=== PATIENT | male | born 1985 | race Caucasian/White ===

== ENCOUNTER → 2023-09-17 11:11 | Outpatient (CLI) | payer OTHER, SELFPAY ==
[2023-09-17 12:22] LABS: Add Manual Diff / Slide Review NO; Basophils Absolute Auto 0 /uL (0-100); Basophils Percent Auto 0.9 % (0-2); Eosinophils Absolute Auto 200 /uL (0-450); Eosinophils Percent Auto 3.8 % (2-4); Hematocrit 44.6 % (41-53); Hemoglobin 15.9 g/dL (13.5-17.5); Lymphocytes Absolute Auto 1700 /uL (1100-4500); Lymphocytes Percent Auto 33.5 % (25-40); Mean Corpuscular HGB Conc 35.7 % (30-36); Mean Corpuscular Hemoglobin 30.8 PG (26-34); Mean Corpuscular Volume 86.3 fL (80-100); Monocytes Absolute Auto 600 /uL (0-900); Monocytes Percent Auto 10.7 % (3-14); Neutrophils Absolute Auto 2600 /uL (1500-7000); Neutrophils Percent Auto 51.1 % (50-75); Platelet Count 249 X10^3/uL (150-400); Red Blood Cell Count 5.17 X10^6/uL (4.5-5.9); Red Cell Distribution Width 12.9 % (11.6-14.8); White Blood Cell Count 5.2 X10^3/uL (4.5-11.0)
[2023-09-17 12:33] LABS: Hemoglobin A1C% w Est Avg Glu 5.4 % (4.0-6.0)
[2023-09-17 12:35] LABS: Cholesterol 222 mg/dL (140-199); HDL Cholesterol 32 mg/dL (40-60); LDL Cholesterol Calculated 145 mg/dL (<100); Triglycerides 226 mg/dL (35-150)
[2023-09-17 13:27] LABS: Hep C Virus Ab w/Reflex Quant NEGATIVE s/c (NEGATIVE)
== END ==
PROVIDERS: PCP Family Medicine; Referring Provider Family Medicine; Visit Provider Family Medicine
DX: Z00.00 Encounter for general adult medical examination without abnormal findings (principal); E66.9 Obesity, unspecified
CPT/HCPCS: 36415; 80061; 83036; 85025; 86803

== ENCOUNTER → 2024-01-06 14:16 | Outpatient (CLI) | payer OTHER, SELFPAY | LOC: PHYS 14:16 | PROVIDERS: Family Provider Family Medicine; PCP Family Medicine; Referring Provider Family Medicine; Visit Provider Family Medicine | DX: R20.0 Anesthesia of skin (principal); R20.2 Paresthesia of skin | CPT/HCPCS: 95886; 95910 ==

== ENCOUNTER 2024-01-19 11:15 | Outpatient (RCR) | payer OTHER, SELFPAY ==
--- NOTE | 2023-11-12 16:53 | PT.OIE ---
Current Diagnoses Pain in right foot (11/12/23) Past Medical History (Last Reviewed 10/24/23 @ 11:22 by Mala Brown PA-C) Psoriasis (~1989) Past Surgical History (Last Reviewed 10/24/23 @ 11:22 by Mala Brown PA-C) Anesthesia History of circumcision (~1996) Visit Care Team Role Provider Type Phil Perez MD Attending Provider Physician Family Provider Primary Care Provider Referring Provider Specialty: Family Practice Obstetrics Address: [address] [place] [address], [facility] Email: [email or web address] Physical Therapy Initial Evaluation PT-OP-A Visit Information Start: 11/12/23 07:31 Freq: Status: Active Protocol: Document 11/12/23 12:40 NM (Rec: 11/12/23 13:00 NM [id number]) Out-Patient Physical Therapy Visit Information Visit Information Visit Type Initial Evaluation Visit Note Pt late to appt because in bathroom Visit Start Time 07:35 Visit Stop Time 08:15 Total Visit Minutes 40 Visit Number 1 Evaluation Information Evaluation Date 11/12/23 Precautions Precautions Decreased sensation along lateral plantar surface of R foot, dorsal lateral surface of foot. PT-OP-B Current Condition Start: 11/12/23 07:31 Freq: Status: Active Protocol: Document 11/12/23 12:40 NM (Rec: 11/12/23 13:00 NM [id number]) Current Condition History of Current Condition Onset Date 4 weeks ago (mid September) Current Complaints R foot numbness, tingling, R ankle pain History of Current Condition Pt presents to clinic with R foot numbness and tingling along the R lateral plantar surface beginning 4 weeks. He also reports minimal numbness along the lateral dorsal surface of the R foot as well. He reports that his R foot started hurting at work and when he took off his shoe after work, he noticed that the lateral portion of the plantar surface of his foot was numb. He reports that the sensation worsened over the next several week but has stagnated recently. When he followed up with the doctor about the condition, they told him that his shoes ([employer]idas with built in sock) were compressing the R lateral plantar nerve. He now wears different shoes that are a size larger to prevent compression. He went to long term care pharmacist for the condition who recommended PT and custom orthotics. Pt believes that he also has a prior Achilles tendon injury to the same foot from a soccer accident a year ago, which he thinks also affects this condition. 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 He reports that his symptoms are most prevalent regardless of weight bearing, but it worsens with standing and walking (> 3 hrs) . Prior Treatments and Tests Met with long term care pharmacist, will be getting custom orthotics in future Treatment Goals Patient/Caregiver Goals To be able to tolerate standing at work Prior Functional Status Baseline Function- ADL's Independent Baseline Function- Mobility Independent Baseline Function- Work/School 10 hour shifts Baseline Function- Recreation/Hobbies Play soccer, swim Current Functional Impairments (Reported) Functional Limitations- Mobility/Gait Unable to walk >3 hrs before needing to sit down Functional Limitations- Work/School Unable to stand for > 3 hrs before needing to sit down Functional Limitations- Recreation/ Unable to hike, play soccer Hobbies PT-OP-C Subjective Start: 11/12/23 07:31 Freq: Status: Active Protocol: Document 11/12/23 12:40 NM (Rec: 11/12/23 13:00 NM [id number]) OP-PT Subjective Patient Comments Patient Comments See above hx for pt report Patient Questionnaires Foot & Ankle Ability Measure- ADL and Sports FAAM-ADL Score 62/84 FAAM-Sport Score 16/32 Lower Extremity Functional Scale LEFS Score 70/80 OP-PT Pain Assessment Pain Assessment Grid Paper Pain Assessment Grid Completed Yes Location R foot/ankle Pain Location Details lateral plantar and dorsal surface of foot Intensity 3 Scale Used Numeric (0 - 10) Description Aching,Burning,Throbbing, Tingling Description- Other initially burning > becomes throbbing over time Frequency Constant Radiating Location none Pain Aggravating Factors ADL's,Activity,Standing, Walking,Stair Climbing Pain Alleviating Factors Massage PT-OP-D Balance Start: 11/12/23 07:31 Freq: Status: Active Protocol: Document 11/12/23 12:40 NM (Rec: 11/12/23 13:00 NM [id number]) Balance Tests Single Limb Standing Single Limb- Right 45 sec Single Limb- Left 30 sec; instability PT-OP-E Functional Tests Start: 12/15/23 07:31 Freq: Status: Active Protocol: Document 11/12/23 12:40 NM (Rec: 11/12/23 13:00 NM [id number]) Functional Tests Squat Test Score 10 Comments heel rise off ground Single Leg Squat Test Score 1 Comment R knee and ankle instability, genu valgus and pronation at foot Other Dorsiflexion Test Name of Test pt foot about 4 from wall in 1/2 kneel, heel on ground, measure distance Score 0 Comment R knee can touch wall PT-OP-F Manual Assessment Start: 11/12/23 07:31 Freq: Status: Active Protocol: Document 11/12/23 12:40 NM (Rec: 11/12/23 13:00 NM [id number]) Manual Assessments Soft Tissue Assessment Soft Tissue Mobility Assessment R Achilles is thickened compared to L Achilles. Pt reports tenderness at origin of plantar fascia on plantar surface of foot Joint Mobility Assessment Joint Mobility Assessment No instability at talocrural or subtalar joints. Nml mobility of rays, tarsals PT-OP-G Mobility & Gait Start: 11/12/23 07:31 Freq: Status: Active Protocol: Document 11/12/23 12:40 NM (Rec: 11/12/23 16:16 NM [id number]) OP Gait Assessment Gait Gait Assistance Required: Independent Distance (Feet) 100 Gait Deviations General Gait Pattern Decreased Feet Clearance Factors Limiting Gait Function Factors Limiting Gait Function Decreased Sensation,Pain Comments Gait Comments Pt demos R hip ER and R foot pronation with slight knee valgus during gait, minimally decreased foot clearance. Gait is not antalgic, but he does demo decreased step length on his RLE compared to his LLE. PT-OP-H Neuro Start: 11/12/23 07:31 Freq: Status: Active Protocol: Document 11/12/23 12:40 NM (Rec: 11/12/23 13:00 NM [id number]) Sensation Evaluation Gross Sensation Gross Sensation Left LE Impaired Sensation Description Paresthesia,Numbness Dermatome Impairments L4,S1 Location Details Right Foot Light Touch Impaired Comments Summary Comments L4 and S1 dermatomes impaired to light touch sensation ( lateral plantar and dorsal foot, 5th toe) PT-OP-J Posture/Palpation/Skin Start: 11/12/23 07:31 Freq: Status: Active Protocol: Document 11/12/23 12:40 NM (Rec: 11/12/23 13:00 NM [id number]) Posture Evaluation Position Standing Evaluation View posterior and anterior Pelvis Posture Posterior Tilted Weight Distribution Balanced Hip Posture (L) Neutral,(R) Neutral Knee Posture (L) Neutral,(R) Genu Valgus Ankle/Foot Posture (L) Pronated,(R) Pronated,(L) Calcaneal Eversion,(R) Calcaneal Eversion Foot Arch (L) Low Arch,(R) Low Arch Palpation Assessment Location R ankle/foot Palpation Location Achilles, malleoli, navicular, metatarsals, calcaneus Palpation Findings Tenderness Palpation Details Tenderness at calcaneus near plantar fascia origin; tenderness at Achilles near insertion Skin Assessment Other Assessments Skin Assessment Comments R foot is same color and temperature as L foot PT-OP-K Range of Motion Start: 11/12/23 07:31 Freq: Status: Active Protocol: Document 11/12/23 12:40 NM (Rec: 11/12/23 13:00 NM [id number]) Ankle and Foot Goniometric Range of Motion Ankle and Foot Left Ankle/Foot ROM WFL Yes Testing Position Sitting Dorsiflexion with Knee Flexed 10 Dorsiflexion with Knee Extended 5 Plantarflexion 40 Inversion 35 Eversion 25 Right Ankle/Foot ROM WFL Yes Testing Position Sitting Dorsiflexion with Knee Flexed 8 Dorsiflexion with Knee Extended 5 Plantarflexion 50 Inversion 35 Eversion 20 Comments Min pain with eversion PT-OP-L Special Tests Start: 11/12/23 07:31 Freq: Status: Active Protocol: Document 11/12/23 12:40 NM (Rec: 11/12/23 13:00 NM [id number]) Special Tests Knee Special Tests Hamstring Length Comments R hamstring 150 deg L hamstring 170 deg Foot/Ankle Special Tests Windlass test Test Results negative (R) Comments arch rises Anterior drawer Test Results negative (R) Talar tilt Test Results negative (R) Villegas Test Results negative (R) Neural Special Tests- Lower Body Tarsal tunnel n tension Test Results negative Comments SLR + eversion + toe ext Plantar nerve Tinel Test Results positive (R) Comments reports tingling with tapping of abductor hallucis Superior peroneal n tension Test Results negative Comments SLR + PF + inversion Tarsal Tunnel Tinel Test Results positive (R) Comments reports tingling within 10 sec (Tibial n) PT-OP-M Strength Start: 11/12/23 07:31 Freq: Status: Active Protocol: Document 11/12/23 12:40 NM (Rec: 11/12/23 13:00 NM [id number]) Ankle/Foot Strength Ankle and Foot Manual Muscle Testing Left Dorsiflexion (L4) 4+ Good+ Inversion 4+ Good+ Eversion (S1) 4+ Good+ Comments Able to perform 10 single leg heel raises (4/5) Toes 5/5 digits 1-5 for flex and ext, unable to abduct toes Right Dorsiflexion (L4) 4- Good- Inversion 4 Good Eversion (S1) 3+ Fair+ Comments Able to perform 10 single leg heel raises (4/5) but with poor eccentric control and mild instability Reports discomfort with heel raise, eversion Toes: 4/5 digits 1-5 for flex and ext, unable to abduct toes PT-OP-T Assessment and Plan Start: 11/12/23 07:31 Freq: Status: Active Protocol: Document 11/12/23 12:40 NM (Rec: 11/12/23 13:00 NM [id number]) Physical Therapy Assessment Rehab Potential Rehabilitation Potential Good Evaluation Complexity Number of Personal Factors/Comorbidities 1-2 Number of Body Systems Impaired 1-2 Clinical Presentation at Evaluation Evolving Impairments Impairments Activity Tolerance,Balance, Coordination,Functional Activities,Functional Mobility ,Gait,Integument,Pain,Posture, ROM,Sensation,Soft Tissue Mobility,Strength Goals Five Impairment strength Impairment R ankle DF 4-/5, eversion 3+/5 , and inversion 4/5 Residential Goal (LTG) Pt will improve global R ankle strength by at least 1 MMT grade without pain in order to demonstrate improved ankle stability during standing and while playing soccer. LTG Duration 6 weeks Four Impairment ADL, function Impairment FAAM score 62/84 (ADLs) and LEFS 70/80 Residential Goal (LTG) Pt will improve his FAAM score by at least 8 points (1 MCID) and LEFS score by at least 5 points in order to demonstrate improved ADL tolerance and ability to participate in recreational activities. LTG Duration 6 weeks Three Impairment strength Impairment R ankle 10 single limb heel raises with poor eccentric control Short Term Goal (STG) Pt will be able to perform at least 10 single leg heel raises with good eccentric control and improved ankle stability in order to demonstrate improved ankle plantaflexion strength for playing soccer. STG Duration 3 weeks Residential Goal (LTG) Pt will be able to perform at least 15 single leg heel raises with good eccentric control and improved ankle stability in order to demonstrate improved ankle plantaflexion strength for playing soccer. LTG Duration 6 weeks Two Impairment function Residential Goal (LTG) Pt will trial OTC shoe orthotics for at least 3 days to prevent R foot/ankle pronation and provide improved arch support for pain relief until he gets custom orthotics . LTG Duration 6 weeks One Impairment function Impairment Only able to stand 3 hrs before pain at work Short Term Goal (STG) Pt will report that he is able to stand for 3 hours with 3/ 10 or less reported pain before needing to take a seated rest break at work in order to demonstrate improved activity tolerance. STG Duration 3 weeks Pedigree Researcher Goal (LTG) Pt will report that he is able to stand for 5 hours with 3/ 10 or less reported pain before needing to take a seated rest break at work in order to demonstrate improved activity tolerance. LTG Duration 6 weeks Assessment Summary Assessment Pt is a 38 y.o. male presenting with R lateral foot numbness beginning 4 weeks ago. Pt has decreased sensation to light touch in the L4 and S1 dermatome, reporting burning and throbbinig. He has positive Tinel tests for the R tibial tunnel and plantar nerve. His R ankle ROM is normal, but he does have reduced R ankle global strength, especially in ankle plantarflexion and eversion. He demos poor eccentric control during plantarflexion with mild instability. During single leg squats and single limb stance , pt tends to move into knee valgus and ankle pronation. Posturally, pt has a pes planus on both feet and stands /ambulates with excessive ankle pronation. Pt has a previous R Achilles tendon injury (negative tests for torn tendon), which may also contribute to poor stability/ posture and strength in the R ankle. At this time, pt is most limited in his ability to stand or walk for more than 3 hours due to pain, which limits his ability to work. PT educated pt on use of foot orthotics to counteract pronation and provide greater arch support. Pt verbalizes agreement and is planning on purchasing OTC orthotics until he can receive custom orthotics from the long term care pharmacist. Pt would benefit from skilled PT to address impairments in R ankle/foot strength, sensation, balance, proprioception, and activity tolerance in order to return to PLOF. Physical Therapy Plan Frequency and Duration Frequency of Treatment 2x/Week Duration of treatment (weeks) 6 Plan of Care Start Date 11/12/23 Plan of Care End Date 12/24/23 Therapeutic Interventions Therapeutic Interventions Aquatic Therapy,Balance Training,Coordination Training ,Gait Training,Home Exercise Program,Joint Mobilizations, Manual Therapy,Neuromuscular Re-education,Patient/Caregiver Education,Self-Care/Home Management,Sensory Integration ,Soft Tissue Mobilization, Taping,Therapeutic Activities, Therapeutic Exercises Modalities Biofeedback,Cold Pack/Ice Massage,Electric Stimulation, Hot Packs,Iontophoresis, Paraffin Bath,Ultrasound, Vasopneumatic Devices Next Visit Focus/Plan Next Note Type Treatment Note Next Visit Plan Iniatiate strengthening: foot intrinsics, ankle 4 way with light resistance Trial taping
--- NOTE | 2023-11-23 08:30 | PT-OP ANOTE ---
PT called and left voicemail at 8:30 am as pt confirmed appt but did not show up. Reminded pt of upcoming appt day/time and cancellation policy.
--- NOTE | 2023-11-25 15:15 | PT.OTN ---
Current Diagnoses Pain in right foot (11/25/23) Physical Therapy Treatment Note PT-OP-A Visit Information Start: 11/12/23 07:31 Freq: Status: Active Protocol: Document 11/25/23 08:18 NM (Rec: 11/25/23 09:01 NM [id number]) Out-Patient Physical Therapy Visit Information Visit Information Visit Type Treatment Note Visit Start Time 08:17 Visit Stop Time 09:00 Total Visit Minutes 43 Visit Number 2 Evaluation Information Evaluation Date 11/12/23 Precautions Precautions Decreased sensation along lateral plantar surface of R foot, dorsal lateral surface of foot. PT-OP-B Current Condition Start: 11/12/23 07:31 Freq: Status: Active Protocol: Document 11/12/23 12:40 NM (Rec: 11/12/23 13:00 NM [id number]) Current Condition History of Current Condition Onset Date 4 weeks ago (mid September) Current Complaints R foot numbness, tingling, R ankle pain History of Current Condition Pt presents to clinic with R foot numbness and tingling along the R lateral plantar surface beginning 4 weeks. He also reports minimal numbness along the lateral dorsal surface of the R foot as well. He reports that his R foot started hurting at work and when he took off his shoe after work, he noticed that the lateral portion of the plantar surface of his foot was numb. He reports that the sensation worsened over the next several week but has stagnated recently. When he followed up with the doctor about the condition, they told him that his shoes ([employer]idas with built in sock) were compressing the R lateral plantar nerve. He now wears different shoes that are a size larger to prevent compression. He went to [facility] for the condition who recommended PT and custom orthotics. Pt believes that he also has a prior Achilles tendon injury to the same foot from a soccer accident a year ago, which he thinks also affects this condition. 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 He reports that his symptoms are most prevalent regardless of weight bearing, but it worsens with standing and walking (> 3 hrs) . Prior Treatments and Tests Met with [facility], will be getting custom orthotics in future Treatment Goals Patient/Caregiver Goals To be able to tolerate standing at work Prior Functional Status Baseline Function- ADL's Independent Baseline Function- Mobility Independent Baseline Function- Work/School 10 hour shifts Baseline Function- Recreation/Hobbies Play soccer, swim Current Functional Impairments (Reported) Functional Limitations- Mobility/Gait Unable to walk >3 hrs before needing to sit down Functional Limitations- Work/School Unable to stand for > 3 hrs before needing to sit down Functional Limitations- Recreation/ Unable to hike, play soccer Hobbies PT-OP-C Subjective Start: 11/12/23 07:31 Freq: Status: Active Protocol: Document 11/25/23 08:18 NM (Rec: 11/25/23 09:01 NM [id number]) OP-PT Subjective Patient Comments Patient Comments Pt presents to clinic with OTC insoles since 11/13. He reports improved sensation and less pain, but it took a while for him to get used to it. He reports that he currently has 0/10 R foot pain . He has not had his EMG/NCS yet. He reports that he went on a long hike without any difficult after [place]. PT-OP-D Balance Start: 11/12/23 07:31 Freq: Status: Active Protocol: Document 11/12/23 12:40 NM (Rec: 11/12/23 13:00 NM [id number]) Balance Tests Single Limb Standing Single Limb- Right 45 sec Single Limb- Left 30 sec; instability PT-OP-E Functional Tests Start: 11/12/23 07:31 Freq: Status: Active Protocol: Document 11/12/23 12:40 NM (Rec: 11/12/23 13:00 NM [id number]) Functional Tests Squat Test Score 10 Comments heel rise off ground Single Leg Squat Test Score 1 Comment R knee and ankle instability, genu valgus and pronation at foot Other Dorsiflexion Test Name of Test pt foot about 4 from wall in 1/2 kneel, heel on ground, measure distance Score 0 Comment R knee can touch wall PT-OP-F Manual Assessment Start: 11/12/23 07:31 Freq: Status: Active Protocol: Document 11/12/23 12:40 NM (Rec: 11/12/23 13:00 NM [id number]) Manual Assessments Soft Tissue Assessment Soft Tissue Mobility Assessment R Achilles is thickened compared to L Achilles. Pt reports tenderness at origin of plantar fascia on plantar surface of foot Joint Mobility Assessment Joint Mobility Assessment No instability at talocrural or subtalar joints. Nml mobility of rays, tarsals PT-OP-G Mobility & Gait Start: 11/12/23 07:31 Freq: Status: Active Protocol: Document 11/12/23 12:40 NM (Rec: 11/12/23 16:16 NM [id number]) OP Gait Assessment Gait Gait Assistance Required: Independent Distance (Feet) 100 Gait Deviations General Gait Pattern Decreased Feet Clearance Factors Limiting Gait Function Factors Limiting Gait Function Decreased Sensation,Pain Comments Gait Comments Pt demos R hip ER and R foot pronation with slight knee valgus during gait, minimally decreased foot clearance. Gait is not antalgic, but he does demo decreased step length on his RLE compared to his LLE. PT-OP-H Neuro Start: 11/12/23 07:31 Freq: Status: Active Protocol: Document 11/12/23 12:40 NM (Rec: 11/12/23 13:00 NM [id number]) Sensation Evaluation Gross Sensation Gross Sensation Left LE Impaired Sensation Description Paresthesia,Numbness Dermatome Impairments L4,S1 Location Details Right Foot Light Touch Impaired Comments Summary Comments L4 and S1 dermatomes impaired to light touch sensation ( lateral plantar and dorsal foot, 5th toe) PT-OP-J Posture/Palpation/Skin Start: 11/12/23 07:31 Freq: Status: Active Protocol: Document 11/12/23 12:40 NM (Rec: 11/12/23 13:00 NM [id number]) Posture Evaluation Position Standing Evaluation View posterior and anterior Pelvis Posture Posterior Tilted Weight Distribution Balanced Hip Posture (L) Neutral,(R) Neutral Knee Posture (L) Neutral,(R) Genu Valgus Ankle/Foot Posture (L) Pronated,(R) Pronated,(L) Calcaneal Eversion,(R) Calcaneal Eversion Foot Arch (L) Low Arch,(R) Low Arch Palpation Assessment Location R ankle/foot Palpation Location Achilles, malleoli, navicular, metatarsals, calcaneus Palpation Findings Tenderness Palpation Details Tenderness at calcaneus near plantar fascia origin; tenderness at Achilles near insertion Skin Assessment Other Assessments Skin Assessment Comments R foot is same color and temperature as L foot PT-OP-K Range of Motion Start: 11/12/23 07:31 Freq: Status: Active Protocol: Document 11/12/23 12:40 NM (Rec: 11/12/23 13:00 NM [id number]) Ankle and Foot Goniometric Range of Motion Ankle and Foot Left Ankle/Foot ROM WFL Yes Testing Position Sitting Dorsiflexion with Knee Flexed 10 Dorsiflexion with Knee Extended 5 Plantarflexion 40 Inversion 35 Eversion 25 Right Ankle/Foot ROM WFL Yes Testing Position Sitting Dorsiflexion with Knee Flexed 8 Dorsiflexion with Knee Extended 5 Plantarflexion 50 Inversion 35 Eversion 20 Comments Min pain with eversion PT-OP-L Special Tests Start: 11/12/23 07:31 Freq: Status: Active Protocol: Document 11/12/23 12:40 NM (Rec: 11/12/23 13:00 NM [id number]) Special Tests Knee Special Tests Hamstring Length Comments R hamstring 150 deg L hamstring 170 deg Foot/Ankle Special Tests Windlass test Test Results negative (R) Comments arch rises Anterior drawer Test Results negative (R) Talar tilt Test Results negative (R) Villegas Test Results negative (R) Neural Special Tests- Lower Body Tarsal tunnel n tension Test Results negative Comments SLR + eversion + toe ext Plantar nerve Tinel Test Results positive (R) Comments reports tingling with tapping of abductor hallucis Superior peroneal n tension Test Results negative Comments SLR + PF + inversion Tarsal Tunnel Tinel Test Results positive (R) Comments reports tingling within 10 sec (Tibial n) PT-OP-M Strength Start: 11/12/23 07:31 Freq: Status: Active Protocol: Document 11/12/23 12:40 NM (Rec: 11/12/23 13:00 NM [id number]) Ankle/Foot Strength Ankle and Foot Manual Muscle Testing Left Dorsiflexion (L4) 4+ Good+ Inversion 4+ Good+ Eversion (S1) 4+ Good+ Comments Able to perform 10 single leg heel raises (4/5) Toes 5/5 digits 1-5 for flex and ext, unable to abduct toes Right Dorsiflexion (L4) 4- Good- Inversion 4 Good Eversion (S1) 3+ Fair+ Comments Able to perform 10 single leg heel raises (4/5) but with poor eccentric control and mild instability Reports discomfort with heel raise, eversion Toes: 4/5 digits 1-5 for flex and ext, unable to abduct toes PT-OP-Q Treatments Start: 11/12/23 07:31 Freq: Status: Active Protocol: Document 11/25/23 08:18 NM (Rec: 11/25/23 09:01 NM [id number]) Therapeutic Exercises Sitting Exercises Ankle 4 Way Side right Resistance inupiat green tb (lvl 3) Equipment Used in long sitting Reps/Minutes 2x10 ea Comments good feedback, reports no pain ; cues for sagittal motion only with PF/DF [place] [employer] Side right Equipment Used 10 marbles, coffee cup Reps/Minutes 2 sets ea (inversion, eversion ) Comments good toe flexion, grasp of marbles Towel Scrunches Sitting Exercise Name for foot intrinsics, toe flexion Side right Equipment Used towel- into inversion then eversion Reps/Minutes 1x7 ea direction Comments cues to keep heel on floor; reports difficulty with motion Short Arch Raises Side right Equipment Used foot on towel Reps/Minutes 1x10x2 Comments cues to keep heel and toes down; limited motion Standing Exercises Big Toe Ext Stretch Side right Equipment Used syl Reps/Minutes 2x30 ea Comments cues for only toe elevated, gentle stretch; reports good feedback Calf Stretch Standing Exercise Name 1. gastrocnemius, 2. soleus Side right Equipment Used syl Reps/Minutes 2x30 ea Comments cues for heel on ground, gentle stretch; reports good feedback Manual Therapy Treatment Soft Tissue Mobilization R foot/ankle Body Location plantar fascia, achilles PT-OP-T Assessment and Plan Start: 11/12/23 07:31 Freq: Status: Active Protocol: Document 11/25/23 08:18 NM (Rec: 11/25/23 09:01 NM [id number]) Physical Therapy Assessment Goals Five Impairment strength Impairment R ankle DF 4-/5, eversion 3+/5 , and inversion 4/5 Exchange Floor Manager Goal (LTG) Pt will improve global R ankle strength by at least 1 MMT grade without pain in order to demonstrate improved ankle stability during standing and while playing soccer. LTG Duration 6 weeks Four Impairment ADL, function Impairment FAAM score 62/84 (ADLs) and LEFS 70/80 [employer] Manager Goal (LTG) Pt will improve his FAAM score by at least 8 points (1 MCID) and LEFS score by at least 5 points in order to demonstrate improved ADL tolerance and ability to participate in recreational activities. LTG Duration 6 weeks Three Impairment strength Impairment R ankle 10 single limb heel raises with poor eccentric control Short Term Goal (STG) Pt will be able to perform at least 10 single leg heel raises with good eccentric control and improved ankle stability in order to demonstrate improved ankle plantaflexion strength for playing soccer. STG Duration 3 weeks [employer] Floor Manager Goal (LTG) Pt will be able to perform at least 15 single leg heel raises with good eccentric control and improved ankle stability in order to demonstrate improved ankle plantaflexion strength for playing soccer. LTG Duration 6 weeks Two Impairment function [employer] Manager Goal (LTG) Pt will trial OTC shoe orthotics for at least 3 days to prevent R foot/ankle pronation and provide improved arch support for pain relief until he gets custom orthotics . 11/25/23: Pt using OTC orthotic shoe insert to prevent overpronation and provide arch support x2 weeks without pain LTG Duration 6 weeks MET One Impairment function Impairment Only able to stand 3 hrs before pain at work Short Term Goal (STG) Pt will report that he is able to stand for 3 hours with 3/ 10 or less reported pain before needing to take a seated rest break at work in order to demonstrate improved activity tolerance. STG Duration 3 weeks Half-Way Goal (LTG) Pt will report that he is able to stand for 5 hours with 3/ 10 or less reported pain before needing to take a seated rest break at work in order to demonstrate improved activity tolerance. LTG Duration 6 weeks Assessment Summary Assessment Pt tolerated tmt well with no increased pain or discomfort in his R ankle. Initiated foot intrinsic exercises to isolate the intrinsic muscles and to promote better arch support, to decrease pain and pressure on the tibial nerve. Also initiated seated ankle plantaflexion/dorsiflexion/ inversion/eversion with medium resistance theraband to begin strengthening ankle extrinsics within pain free range. Pt requires cues to prevent compensation with hip or frontal plane motion during banded ankle exercises; reports most difficulty with ankle eversion and inversion but no pain with any motion. Will progress to standing ankle strengthening in next session depending on pt tolerance. Initiated stretching of soleus, gastroc, and 1st toe to decrease pressure at plantar fascia for relief in weight bearing. Manual tmt aimed at decreasing any tenderness, pain or soft tissue restrictions at R Achilles tendon, plantar fascia, and calf. R achilles tendon is thickened compared to L side, but he reports relief in symptoms after soft tissue mobilization. Since IE, pt has been wearing OTC shoe insert to prevent overpronation and to provide arch support until he gets custom orthotics, which pt reports is helpful for extended standing at work. HEP : arch raise, ankle 4 way with band, stretch gastroc/soleus/ 1st toe. Pt would benefit from skilled PT to address impairments in R ankle intrinsics, strength, ROM, balance, and activity tolerance to decrease pain symptoms and return to PLOF. Physical Therapy Plan Frequency and Duration Frequency of Treatment 2x/Week Duration of treatment (weeks) 6 Plan of Care Start Date 11/12/23 Plan of Care End Date 12/24/23 Therapeutic Interventions Therapeutic Interventions Aquatic Therapy,Balance Training,Coordination Training ,Gait Training,Home Exercise Program,Joint Mobilizations, Manual Therapy,Neuromuscular Re-education,Patient/Caregiver Education,Self-Care/Home Management,Sensory Integration ,Soft Tissue Mobilization, Taping,Therapeutic Activities, Therapeutic Exercises Modalities Biofeedback,Cold Pack/Ice Massage,Electric Stimulation, Hot Packs,Iontophoresis, Paraffin Bath,Ultrasound, Vasopneumatic Devices Next Visit Focus/Plan Next Note Type Treatment Note Next Visit Plan Cont with ankle strengthening: ankle inv/ev, add standing DF /PF as tolerated (compared to tb), cont foot intrinsics and progress (to standing?) Trial tibial n glide Continue manual therapy of R ankle, achilles, plantar fascia prn
--- NOTE | 2023-12-09 13:58 | PT.OTN ---
Current Diagnoses Pain in right foot (12/09/23) Physical Therapy Treatment Note PT-OP-A Visit Information Start: 11/12/23 07:31 Freq: Status: Active Protocol: Document 12/09/23 13:08 NM (Rec: 12/09/23 13:57 NM [id number]) Out-Patient Physical Therapy Visit Information Visit Information Visit Type Treatment Note Visit Start Time 13:05 Visit Stop Time 13:45 Total Visit Minutes 40 Visit Number 3 Evaluation Information Evaluation Date 11/12/23 Precautions Precautions Decreased sensation along lateral plantar surface of R foot, dorsal lateral surface of foot. PT-OP-B Current Condition Start: 11/12/23 07:31 Freq: Status: Active Protocol: Document 11/12/23 12:40 NM (Rec: 11/12/23 13:00 NM [id number]) Current Condition History of Current Condition Onset Date 4 weeks ago (mid September) Current Complaints R foot numbness, tingling, R ankle pain History of Current Condition Pt presents to clinic with R foot numbness and tingling along the R lateral plantar surface beginning 4 weeks. He also reports minimal numbness along the lateral dorsal surface of the R foot as well. He reports that his R foot started hurting at work and when he took off his shoe after work, he noticed that the lateral portion of the plantar surface of his foot was numb. He reports that the sensation worsened over the next several week but has stagnated recently. When he followed up with the doctor about the condition, they told him that his shoes ([employer]idas with built in sock) were compressing the R lateral plantar nerve. He now wears different shoes that are a size larger to prevent compression. He went to [facility] for the condition who recommended PT and custom orthotics. Pt believes that he also has a prior Achilles tendon injury to the same foot from a soccer accident a year ago, which he thinks also affects this condition. 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 He reports that his symptoms are most prevalent regardless of weight bearing, but it worsens with standing and walking (> 3 hrs) . Prior Treatments and Tests Met with [facility], will be getting custom orthotics in future Treatment Goals Patient/Caregiver Goals To be able to tolerate standing at work Prior Functional Status Baseline Function- ADL's Independent Baseline Function- Mobility Independent Baseline Function- Work/School 10 hour shifts Baseline Function- Recreation/Hobbies Play soccer, swim Current Functional Impairments (Reported) Functional Limitations- Mobility/Gait Unable to walk >3 hrs before needing to sit down Functional Limitations- Work/School Unable to stand for > 3 hrs before needing to sit down Functional Limitations- Recreation/ Unable to hike, play soccer Hobbies PT-OP-C Subjective Start: 11/12/23 07:31 Freq: Status: Active Protocol: Document 12/09/23 13:08 NM (Rec: 12/09/23 13:57 NM [id number]) OP-PT Subjective Patient Comments Patient Comments Pt presents with 3/10 R foot pain. He just got over covid, so limited ability to perform exercises. He has been doing some exercises at work, and reports that standing at work is still hard. He has his orthotics appt today. PT-OP-D Balance Start: 11/12/23 07:31 Freq: Status: Active Protocol: Document 11/12/23 12:40 NM (Rec: 11/12/23 13:00 NM [id number]) Balance Tests Single Limb Standing Single Limb- Right 45 sec Single Limb- Left 30 sec; instability PT-OP-E Functional Tests Start: 11/12/23 07:31 Freq: Status: Active Protocol: Document 11/12/23 12:40 NM (Rec: 11/12/23 13:00 NM [id number]) Functional Tests Squat Test Score 10 Comments heel rise off ground Single Leg Squat Test Score 1 Comment R knee and ankle instability, genu valgus and pronation at foot Other Dorsiflexion Test Name of Test pt foot about 4 from wall in 1/2 kneel, heel on ground, measure distance Score 0 Comment R knee can touch wall PT-OP-F Manual Assessment Start: 11/12/23 07:31 Freq: Status: Active Protocol: Document 11/12/23 12:40 NM (Rec: 11/12/23 13:00 NM [id number]) Manual Assessments Soft Tissue Assessment Soft Tissue Mobility Assessment R Achilles is thickened compared to L Achilles. Pt reports tenderness at origin of plantar fascia on plantar surface of foot Joint Mobility Assessment Joint Mobility Assessment No instability at talocrural or subtalar joints. Nml mobility of rays, tarsals PT-OP-G Mobility & Gait Start: 11/12/23 07:31 Freq: Status: Active Protocol: Document 11/12/23 12:40 NM (Rec: 11/12/23 16:16 NM [id number]) OP Gait Assessment Gait Gait Assistance Required: Independent Distance (Feet) 100 Gait Deviations General Gait Pattern Decreased Feet Clearance Factors Limiting Gait Function Factors Limiting Gait Function Decreased Sensation,Pain Comments Gait Comments Pt demos R hip ER and R foot pronation with slight knee valgus during gait, minimally decreased foot clearance. Gait is not antalgic, but he does demo decreased step length on his RLE compared to his LLE. PT-OP-H Neuro Start: 11/12/23 07:31 Freq: Status: Active Protocol: Document 11/12/23 12:40 NM (Rec: 11/12/23 13:00 NM [id number]) Sensation Evaluation Gross Sensation Gross Sensation Left LE Impaired Sensation Description Paresthesia,Numbness Dermatome Impairments L4,S1 Location Details Right Foot Light Touch Impaired Comments Summary Comments L4 and S1 dermatomes impaired to light touch sensation ( lateral plantar and dorsal foot, 5th toe) PT-OP-J Posture/Palpation/Skin Start: 11/12/23 07:31 Freq: Status: Active Protocol: Document 11/12/23 12:40 NM (Rec: 11/12/23 13:00 NM [id number]) Posture Evaluation Position Standing Evaluation View posterior and anterior Pelvis Posture Posterior Tilted Weight Distribution Balanced Hip Posture (L) Neutral,(R) Neutral Knee Posture (L) Neutral,(R) Genu Valgus Ankle/Foot Posture (L) Pronated,(R) Pronated,(L) Calcaneal Eversion,(R) Calcaneal Eversion Foot Arch (L) Low Arch,(R) Low Arch Palpation Assessment Location R ankle/foot Palpation Location Achilles, malleoli, navicular, metatarsals, calcaneus Palpation Findings Tenderness Palpation Details Tenderness at calcaneus near plantar fascia origin; tenderness at Achilles near insertion Skin Assessment Other Assessments Skin Assessment Comments R foot is same color and temperature as L foot PT-OP-K Range of Motion Start: 11/12/23 07:31 Freq: Status: Active Protocol: Document 11/12/23 12:40 NM (Rec: 11/12/23 13:00 NM [id number]) Ankle and Foot Goniometric Range of Motion Ankle and Foot Left Ankle/Foot ROM WFL Yes Testing Position Sitting Dorsiflexion with Knee Flexed 10 Dorsiflexion with Knee Extended 5 Plantarflexion 40 Inversion 35 Eversion 25 Right Ankle/Foot ROM WFL Yes Testing Position Sitting Dorsiflexion with Knee Flexed 8 Dorsiflexion with Knee Extended 5 Plantarflexion 50 Inversion 35 Eversion 20 Comments Min pain with eversion PT-OP-L Special Tests Start: 11/12/23 07:31 Freq: Status: Active Protocol: Document 11/12/23 12:40 NM (Rec: 11/12/23 13:00 NM [id number]) Special Tests Knee Special Tests Hamstring Length Comments R hamstring 150 deg L hamstring 170 deg Foot/Ankle Special Tests Windlass test Test Results negative (R) Comments arch rises Anterior drawer Test Results negative (R) Talar tilt Test Results negative (R) Villegas Test Results negative (R) Neural Special Tests- Lower Body Tarsal tunnel n tension Test Results negative Comments SLR + eversion + toe ext Plantar nerve Tinel Test Results positive (R) Comments reports tingling with tapping of abductor hallucis Superior peroneal n tension Test Results negative Comments SLR + PF + inversion Tarsal Tunnel Tinel Test Results positive (R) Comments reports tingling within 10 sec (Tibial n) PT-OP-M Strength Start: 11/12/23 07:31 Freq: Status: Active Protocol: Document 11/12/23 12:40 NM (Rec: 11/12/23 13:00 NM [id number]) Ankle/Foot Strength Ankle and Foot Manual Muscle Testing Left Dorsiflexion (L4) 4+ Good+ Inversion 4+ Good+ Eversion (S1) 4+ Good+ Comments Able to perform 10 single leg heel raises (4/5) Toes 5/5 digits 1-5 for flex and ext, unable to abduct toes Right Dorsiflexion (L4) 4- Good- Inversion 4 Good Eversion (S1) 3+ Fair+ Comments Able to perform 10 single leg heel raises (4/5) but with poor eccentric control and mild instability Reports discomfort with heel raise, eversion Toes: 4/5 digits 1-5 for flex and ext, unable to abduct toes PT-OP-Q Treatments Start: 11/12/23 07:31 Freq: Status: Active Protocol: Document 12/09/23 13:08 NM (Rec: 12/09/23 13:57 NM [id number]) Cardio Equipment Bicycle (Upright) Duration (Minutes) 4 Resistance 1 Seat Position 5 Other warm up Therapeutic Exercises Supine Exercises Tibial nerve glide Supine Exercise Name knee flex>ext with PF>DF + ankle eversion Side right Equipment Used hands assisting Reps/Minutes 1x10 Comments cues to focus on ankle eversion; reports tight hamstring Sitting Exercises Individual toe exercise Sitting Exercise Name toe piano (flexion), toe abd/ add AROM/AAROM Side right Resistance difficulty with toe piano Equipment Used AAROM Reps/Minutes 1x5 ea Comments cues for control, have hand assist with 5th toe abd/add Ankle 4 Way Sitting Exercise Name inv/ev only Side right Resistance pilot point green tb (lvl 3) Equipment Used in long sitting Reps/Minutes 2x10 ea Comments good feedback, reports no pain ; cues for no hip rotation with inv [place] Pick Ups Sitting Exercise Name progressed to standing Equipment Used 10 marbles, coffee cup Reps/Minutes 2 sets ea (inversion, eversion ) Comments good toe flexion, grasp of marbles Short Arch Raises Sitting Exercise Name progressed to standing Side right Equipment Used foot on towel Reps/Minutes 1x15x2 Comments cues to keep heel and toes down; improved motion Standing Exercises Toe raises Standing Exercise Name for DF strengthening Side bilateral Equipment Used wall for support Reps/Minutes 2x10 Comments reports on pain; cues to prevent rocking, only DF motion Heel raises Standing Exercise Name 1. gastroc, 2. soleus Side bilateral Equipment Used wall for support Reps/Minutes 2x10 ea Comments reports no pain; cues for weight on big toes Big Toe Ext Stretch Standing Exercise Name next time Calf Stretch Standing Exercise Name 1. gastrocnemius, 2. soleus- for greater stretch Side right Equipment Used 6 step Reps/Minutes 5x10 ea Comments cue to return to neutral, no heel raise from elevation Manual Therapy Treatment Soft Tissue Mobilization R foot/ankle Body Location plantar fascia, achilles Mobilization Type Cross-Friction,Rolling, Strumming,Sustained Pressure Intensity/Depth Moderate Body Position Prone Comments For pain relief and decrease any soft tissue restrictions- minimal restrictions of plantar fascia and achilles. Thickening of R achilles, decreased tenderness today with cross friction and strumming. Added with plantarflexion/dorsiflexion. Pt reports good relief after PT-OP-T Assessment and Plan Start: 11/12/23 07:31 Freq: Status: Active Protocol: Document 12/09/23 13:08 NM (Rec: 12/09/23 13:57 NM [id number]) Physical Therapy Assessment Goals Five Impairment strength Impairment R ankle DF 4-/5, eversion 3+/5 , and inversion 4/5 Mcc Goal (LTG) Pt will improve global R ankle strength by at least 1 MMT grade without pain in order to demonstrate improved ankle stability during standing and while playing soccer. LTG Duration 6 weeks Four Impairment ADL, function Impairment FAAM score 62/84 (ADLs) and LEFS 70/80 Conference Assistant Goal (LTG) Pt will improve his FAAM score by at least 8 points (1 MCID) and LEFS score by at least 5 points in order to demonstrate improved ADL tolerance and ability to participate in recreational activities. LTG Duration 6 weeks Three Impairment strength Impairment R ankle 10 single limb heel raises with poor eccentric control Short Term Goal (STG) Pt will be able to perform at least 10 single leg heel raises with good eccentric control and improved ankle stability in order to demonstrate improved ankle plantaflexion strength for playing soccer. STG Duration 3 weeks Mcc Goal (LTG) Pt will be able to perform at least 15 single leg heel raises with good eccentric control and improved ankle stability in order to demonstrate improved ankle plantaflexion strength for playing soccer. LTG Duration 6 weeks Two Impairment function Conference Assistant Goal (LTG) Pt will trial OTC shoe orthotics for at least 3 days to prevent R foot/ankle pronation and provide improved arch support for pain relief until he gets custom orthotics . 11/25/23: Pt using OTC orthotic shoe insert to prevent overpronation and provide arch support x2 weeks without pain LTG Duration 6 weeks MET One Impairment function Impairment Only able to stand 3 hrs before pain at work Short Term Goal (STG) Pt will report that he is able to stand for 3 hours with 3/ 10 or less reported pain before needing to take a seated rest break at work in order to demonstrate improved activity tolerance. STG Duration 3 weeks Conference Assistant Goal (LTG) Pt will report that he is able to stand for 5 hours with 3/ 10 or less reported pain before needing to take a seated rest break at work in order to demonstrate improved activity tolerance. LTG Duration 6 weeks Assessment Summary Assessment Pt tolerated treatment well, no increased pain with weightbearing activity. Progressed to standing short arch raises and marble pick ups to challenge foot instrinsics. Continued with banded ankle inversion/ eversion to maximize ankle ROM and stability. Added standing gastrocnemius and soleus raises, in addition to dorsiflexion raises for progressive ankle strengthening; pt requires cues to control motion and limit translation outside of sagittal plane. Also initiated tibial nerve glide to promote better mobilization of nerve and decrease numbness; pt reports good feedback with mobilization. Soft tissue treatment to limit restrictions in R plantar fascia and Achilles, where pt reports that he gets pain in standing at work. R Achilles is thickened but not tender. PT educated pt on continuing to wear orthotics regularly ( switch between shoes) and to continue to wear supportive shoes; pt verbalizes agreement . HEP updated: tibial nerve glide, standing gastroc/soleus raise, toe raise. Pt would benefit from skilled PT to address R ankle strength/ROM and progress to higher level activity in order to decrease symptoms while at work and to return to PLOF. Physical Therapy Plan Frequency and Duration Frequency of Treatment 2x/Week Duration of treatment (weeks) 6 Plan of Care Start Date 11/12/23 Plan of Care End Date 12/24/23 Therapeutic Interventions Therapeutic Interventions Aquatic Therapy,Balance Training,Coordination Training ,Gait Training,Home Exercise Program,Joint Mobilizations, Manual Therapy,Neuromuscular Re-education,Patient/Caregiver Education,Self-Care/Home Management,Sensory Integration ,Soft Tissue Mobilization, Taping,Therapeutic Activities, Therapeutic Exercises Modalities Biofeedback,Cold Pack/Ice Massage,Electric Stimulation, Hot Packs,Iontophoresis, Paraffin Bath,Ultrasound, Vasopneumatic Devices Next Visit Focus/Plan Next Note Type Treatment Note Next Visit Plan Cont with ankle strengthening: ankle inv/ev, add standing DF /PF as tolerated (compared to tb), cont foot intrinsics and progress, tibial n glide. Add hip strengthening and higher level ankle (eccentric raises, elevated raises, toe/heel walk) Continue manual therapy of R ankle, achilles, plantar fascia prn
--- NOTE | 2023-12-14 14:47 | PT.OTN ---
Current Diagnoses Pain in right foot (12/14/23) Physical Therapy Treatment Note PT-OP-A Visit Information Start: 11/12/23 07:31 Freq: Status: Active Protocol: Document 12/14/23 13:50 NM (Rec: 12/14/23 14:47 NM [id number]) Out-Patient Physical Therapy Visit Information Visit Information Visit Type Treatment Note Visit Start Time 13:50 Visit Stop Time 02:30 Total Visit Minutes 40 Visit Number 4 Evaluation Information Evaluation Date 11/12/23 Precautions Precautions Decreased sensation along lateral plantar surface of R foot, dorsal lateral surface of foot. PT-OP-B Current Condition Start: 11/12/23 07:31 Freq: Status: Active Protocol: Document 11/12/23 12:40 NM (Rec: 11/12/23 13:00 NM [id number]) Current Condition History of Current Condition Onset Date 4 weeks ago (mid September) Current Complaints R foot numbness, tingling, R ankle pain History of Current Condition Pt presents to clinic with R foot numbness and tingling along the R lateral plantar surface beginning 4 weeks. He also reports minimal numbness along the lateral dorsal surface of the R foot as well. He reports that his R foot started hurting at work and when he took off his shoe after work, he noticed that the lateral portion of the plantar surface of his foot was numb. He reports that the sensation worsened over the next several week but has stagnated recently. When he followed up with the doctor about the condition, they told him that his shoes ([employer]idas with built in sock) were compressing the R lateral plantar nerve. He now wears different shoes that are a size larger to prevent compression. He went to auto adjudication specialist for the condition who recommended PT and custom orthotics. Pt believes that he also has a prior Achilles tendon injury to the same foot from a soccer accident a year ago, which he thinks also affects this condition. 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 He reports that his symptoms are most prevalent regardless of weight bearing, but it worsens with standing and walking (> 3 hrs) . Prior Treatments and Tests Met with auto adjudication specialist, will be getting custom orthotics in future Treatment Goals Patient/Caregiver Goals To be able to tolerate standing at work Prior Functional Status Baseline Function- ADL's Independent Baseline Function- Mobility Independent Baseline Function- Work/School 10 hour shifts Baseline Function- Recreation/Hobbies Play soccer, swim Current Functional Impairments (Reported) Functional Limitations- Mobility/Gait Unable to walk >3 hrs before needing to sit down Functional Limitations- Work/School Unable to stand for > 3 hrs before needing to sit down Functional Limitations- Recreation/ Unable to hike, play soccer Hobbies PT-OP-C Subjective Start: 11/12/23 07:31 Freq: Status: Active Protocol: Document 12/14/23 13:50 NM (Rec: 12/14/23 14:47 NM [id number]) OP-PT Subjective Patient Comments Patient Comments Currently 0/10 pain at session . Pt reports 4/10 R foot pain at work due to standing; feels like there's a lump in his foot. No numbness/tingling. He reports compliance with his HEP. He saw the orthotists recently and is expecting. He thinks that PT is helping. Wearing his tennis shoes today . PT-OP-D Balance Start: 11/12/23 07:31 Freq: Status: Active Protocol: Document 11/12/23 12:40 NM (Rec: 11/12/23 13:00 NM [id number]) Balance Tests Single Limb Standing Single Limb- Right 45 sec Single Limb- Left 30 sec; instability PT-OP-E Functional Tests Start: 11/12/23 07:31 Freq: Status: Active Protocol: Document 11/12/23 12:40 NM (Rec: 11/12/23 13:00 NM [id number]) Functional Tests Squat Test Score 10 Comments heel rise off ground Single Leg Squat Test Score 1 Comment R knee and ankle instability, genu valgus and pronation at foot Other Dorsiflexion Test Name of Test pt foot about 4 from wall in 1/2 kneel, heel on ground, measure distance Score 0 Comment R knee can touch wall PT-OP-F Manual Assessment Start: 11/12/23 07:31 Freq: Status: Active Protocol: Document 11/12/23 12:40 NM (Rec: 11/12/23 13:00 NM [id number]) Manual Assessments Soft Tissue Assessment Soft Tissue Mobility Assessment R Achilles is thickened compared to L Achilles. Pt reports tenderness at origin of plantar fascia on plantar surface of foot Joint Mobility Assessment Joint Mobility Assessment No instability at talocrural or subtalar joints. Nml mobility of rays, tarsals PT-OP-G Mobility & Gait Start: 11/12/23 07:31 Freq: Status: Active Protocol: Document 11/12/23 12:40 NM (Rec: 11/12/23 16:16 NM [id number]) OP Gait Assessment Gait Gait Assistance Required: Independent Distance (Feet) 100 Gait Deviations General Gait Pattern Decreased Feet Clearance Factors Limiting Gait Function Factors Limiting Gait Function Decreased Sensation,Pain Comments Gait Comments Pt demos R hip ER and R foot pronation with slight knee valgus during gait, minimally decreased foot clearance. Gait is not antalgic, but he does demo decreased step length on his RLE compared to his LLE. PT-OP-H Neuro Start: 11/12/23 07:31 Freq: Status: Active Protocol: Document 11/12/23 12:40 NM (Rec: 11/12/23 13:00 NM [id number]) Sensation Evaluation Gross Sensation Gross Sensation Left LE Impaired Sensation Description Paresthesia,Numbness Dermatome Impairments L4,S1 Location Details Right Foot Light Touch Impaired Comments Summary Comments L4 and S1 dermatomes impaired to light touch sensation ( lateral plantar and dorsal foot, 5th toe) PT-OP-J Posture/Palpation/Skin Start: 11/12/23 07:31 Freq: Status: Active Protocol: Document 11/12/23 12:40 NM (Rec: 11/12/23 13:00 NM [id number]) Posture Evaluation Position Standing Evaluation View posterior and anterior Pelvis Posture Posterior Tilted Weight Distribution Balanced Hip Posture (L) Neutral,(R) Neutral Knee Posture (L) Neutral,(R) Genu Valgus Ankle/Foot Posture (L) Pronated,(R) Pronated,(L) Calcaneal Eversion,(R) Calcaneal Eversion Foot Arch (L) Low Arch,(R) Low Arch Palpation Assessment Location R ankle/foot Palpation Location Achilles, malleoli, navicular, metatarsals, calcaneus Palpation Findings Tenderness Palpation Details Tenderness at calcaneus near plantar fascia origin; tenderness at Achilles near insertion Skin Assessment Other Assessments Skin Assessment Comments R foot is same color and temperature as L foot PT-OP-K Range of Motion Start: 11/12/23 07:31 Freq: Status: Active Protocol: Document 11/12/23 12:40 NM (Rec: 11/12/23 13:00 NM [id number]) Ankle and Foot Goniometric Range of Motion Ankle and Foot Left Ankle/Foot ROM WFL Yes Testing Position Sitting Dorsiflexion with Knee Flexed 10 Dorsiflexion with Knee Extended 5 Plantarflexion 40 Inversion 35 Eversion 25 Right Ankle/Foot ROM WFL Yes Testing Position Sitting Dorsiflexion with Knee Flexed 8 Dorsiflexion with Knee Extended 5 Plantarflexion 50 Inversion 35 Eversion 20 Comments Min pain with eversion PT-OP-L Special Tests Start: 11/12/23 07:31 Freq: Status: Active Protocol: Document 11/12/23 12:40 NM (Rec: 11/12/23 13:00 NM [id number]) Special Tests Knee Special Tests Hamstring Length Comments R hamstring 150 deg L hamstring 170 deg Foot/Ankle Special Tests Windlass test Test Results negative (R) Comments arch rises Anterior drawer Test Results negative (R) Talar tilt Test Results negative (R) Villegas Test Results negative (R) Neural Special Tests- Lower Body Tarsal tunnel n tension Test Results negative Comments SLR + eversion + toe ext Plantar nerve Tinel Test Results positive (R) Comments reports tingling with tapping of abductor hallucis Superior peroneal n tension Test Results negative Comments SLR + PF + inversion Tarsal Tunnel Tinel Test Results positive (R) Comments reports tingling within 10 sec (Tibial n) PT-OP-M Strength Start: 11/12/23 07:31 Freq: Status: Active Protocol: Document 11/12/23 12:40 NM (Rec: 11/12/23 13:00 NM [id number]) Ankle/Foot Strength Ankle and Foot Manual Muscle Testing Left Dorsiflexion (L4) 4+ Good+ Inversion 4+ Good+ Eversion (S1) 4+ Good+ Comments Able to perform 10 single leg heel raises (4/5) Toes 5/5 digits 1-5 for flex and ext, unable to abduct toes Right Dorsiflexion (L4) 4- Good- Inversion 4 Good Eversion (S1) 3+ Fair+ Comments Able to perform 10 single leg heel raises (4/5) but with poor eccentric control and mild instability Reports discomfort with heel raise, eversion Toes: 4/5 digits 1-5 for flex and ext, unable to abduct toes PT-OP-Q Treatments Start: 11/12/23 07:31 Freq: Status: Active Protocol: Document 12/14/23 13:50 NM (Rec: 12/14/23 14:47 NM [id number]) Cardio Equipment Bicycle (Upright) Duration (Minutes) 4 Resistance 3 Seat Position 5 Other warm up Therapeutic Exercises Sitting Exercises Individual toe exercise Sitting Exercise Name toe lifts- 1st toe, then 2-5th toes Side right Resistance hand holding other toe/s to isolate movement Equipment Used AROM Reps/Minutes 1x10 ea Comments cues for control, have hand assist with toe text Standing Exercises Toe taps Standing Exercise Name small G/S isometric heel raise , tapping opp foot over cone then lower Side right Equipment Used stairs for UE use prn Reps/Minutes 1x8 ea Comments reports good activation in bottom of foot, no pain Hamstring stretch Side right Equipment Used foot elevated on 12 Reps/Minutes 2x30 Comments good feedback with stretch Eccentric calf raise Standing Exercise Name B up> R slowly lower Side right Equipment Used stairs for UE support prn Reps/Minutes 2x10 ea Comments cues to slowly lower with RLE; less PF ROM RLE Heel raises Standing Exercise Name 1. gastroc, 2. soleus Side bilateral Equipment Used wall for support- had foot cavitation during soleus raise Reps/Minutes 2x10 ea Comments reports no pain; cues for weight on big toes Big Toe Ext Stretch Standing Exercise Name toe ext stretch using rocking stride forward Side right Equipment Used stride stance Reps/Minutes 1x10 with 3 hold into ext Calf Stretch Standing Exercise Name 1. gastrocnemius, 2. soleus- for greater stretch Side right Equipment Used wall Reps/Minutes 2x30 ea Comments good feedback with soleus stretch under foot and calf Manual Therapy Treatment Soft Tissue Mobilization R foot/ankle Body Location plantar fascia, intrinsics Mobilization Type Cross-Friction,Rolling, Strumming,Sustained Pressure Intensity/Depth Moderate Body Position Prone Comments For pain relief and decrease any soft tissue restrictions- minimal restrictions of plantar fascia and achilles. Pt reports ball of muscle under foot near 5th metatarsal ; unable to palpate and no tenderness. Pt reports good relief after. Educated on self - mobilization using tennis ball Joint Mobilizations R foot Joint 1-5 rays Direction dorsal-ventral Grade III Body Position Supine Reps/Duration 1x10 ea Comments for ray mobilization to improve R foot mobility PT-OP-T Assessment and Plan Start: 11/12/23 07:31 Freq: Status: Active Protocol: Document 12/14/23 13:50 NM (Rec: 12/14/23 14:47 NM [id number]) Physical Therapy Assessment Goals Five Impairment strength Impairment R ankle DF 4-/5, eversion 3+/5 , and inversion 4/5 Steam Station Supervisor Goal (LTG) Pt will improve global R ankle strength by at least 1 MMT grade without pain in order to demonstrate improved ankle stability during standing and while playing soccer. 12/14/23: 4+/5 MMT, no pain LTG Duration 6 weeks MET Four Impairment ADL, function Impairment FAAM score 62/84 (ADLs) and LEFS 70/80 Nursing Home Goal (LTG) Pt will improve his FAAM score by at least 8 points (1 MCID) and LEFS score by at least 5 points in order to demonstrate improved ADL tolerance and ability to participate in recreational activities. LTG Duration 6 weeks Three Impairment strength Impairment R ankle 10 single limb heel raises with poor eccentric control Short Term Goal (STG) Pt will be able to perform at least 10 single leg heel raises with good eccentric control and improved ankle stability in order to demonstrate improved ankle plantaflexion strength for playing soccer. STG Duration 3 weeks [employer] Station Supervisor Goal (LTG) Pt will be able to perform at least 15 single leg heel raises with good eccentric control and improved ankle stability in order to demonstrate improved ankle plantaflexion strength for playing soccer. LTG Duration 6 weeks Two Impairment function [employer] Station Supervisor Goal (LTG) Pt will trial OTC shoe orthotics for at least 3 days to prevent R foot/ankle pronation and provide improved arch support for pain relief until he gets custom orthotics . 11/25/23: Pt using OTC orthotic shoe insert to prevent overpronation and provide arch support x2 weeks without pain LTG Duration 6 weeks MET One Impairment function Impairment Only able to stand 3 hrs before pain at work Short Term Goal (STG) Pt will report that he is able to stand for 3 hours with 3/ 10 or less reported pain before needing to take a seated rest break at work in order to demonstrate improved activity tolerance. STG Duration 3 weeks NOT MET Nursing Home Goal (LTG) Pt will report that he is able to stand for 5 hours with 3/ 10 or less reported pain before needing to take a seated rest break at work in order to demonstrate improved activity tolerance. LTG Duration 6 weeks Assessment Summary Assessment Continued with strengthening foot intrinsics for improved R foot stability during stance and gait. Pt demos difficulty with isolating toe extensors during toe lifts. Initiated eccentric heel raises. Pt requires cues for controlled motion, cues to move through entire plantarflexion ROM. During BLE heel raises, demos decreased R heel raise ROM compared to LLE. Pt reports good feedback with soleus stretching and raises, demos improved control during plantarflexion ROM with knee flexed and requiring fewer cues for control and to limit compensations. Manual treatment to assess pt report of muscle tightness under his foot; did not palpate any changes to muscle or find tenderness. Educated pt on self-mobilization using a ball at home. HEP: eccentric calf raise, G/S stretch, toe taps. Pt continues to have numbness along lateral foot, minimal change since IE. PT and pt discussed wearing appropriate shoes for work and upcoming trip with his insoles. He is still trying to get scheduled for an EMG/NCS. Pt would benefit from skilled PT for R foot/ankle strengthening and mobility in order improve activity tolerance and symptom management. Physical Therapy Plan Frequency and Duration Frequency of Treatment 2x/Week Duration of treatment (weeks) 6 Plan of Care Start Date 11/12/23 Plan of Care End Date 12/24/23 Therapeutic Interventions Therapeutic Interventions Aquatic Therapy,Balance Training,Coordination Training ,Gait Training,Home Exercise Program,Joint Mobilizations, Manual Therapy,Neuromuscular Re-education,Patient/Caregiver Education,Self-Care/Home Management,Sensory Integration ,Soft Tissue Mobilization, Taping,Therapeutic Activities, Therapeutic Exercises Modalities Biofeedback,Cold Pack/Ice Massage,Electric Stimulation, Hot Packs,Iontophoresis, Paraffin Bath,Ultrasound, Vasopneumatic Devices Next Visit Focus/Plan Next Note Type Progress Note Next Visit Plan Cont with ankle strengthening: standing DF/PF -eccentrics ( trial single leg), cont foot intrinsics and progress, tibial n glide. Add hip strengthening and higher level ankle (eccentric raises, elevated raises, toe/heel walk ). Add lunge, squat for deep DF mob Continue manual therapy of R ankle, achilles, plantar fascia prn PN on 12/22 or 12/23, schedule out further
--- NOTE | 2023-12-17 13:16 | PT-OP ANOTE ---
PT called and spoke to pt as he did not attend today's appt at 1300. Pt states that he did not get a text reminder for today's appt, so he didn't know that he had an appt. PT reminded pt of upcoming appt on 12/23 at 1345, which pt confirmed verbally that he plans to attend.
--- NOTE | 2023-12-23 16:44 | PT.OTN ---
Current Diagnoses Pain in right foot (12/23/23) Physical Therapy Treatment Note PT-OP-A Visit Information Start: 11/12/23 07:31 Freq: Status: Active Protocol: Document 12/23/23 13:47 NM (Rec: 12/23/23 14:30 NM [id number]) Out-Patient Physical Therapy Visit Information Visit Information Visit Type Progress Note Visit Start Time 13:47 Visit Stop Time 14:30 Visit Number 5 Evaluation Information Evaluation Date 11/12/23 Precautions Precautions Decreased sensation along lateral plantar surface of R foot, dorsal lateral surface of foot. PT-OP-B Current Condition Start: 11/12/23 07:31 Freq: Status: Active Protocol: Document 11/12/23 12:40 NM (Rec: 11/12/23 13:00 NM [id number]) Current Condition History of Current Condition Onset Date 4 weeks ago (mid September) Current Complaints R foot numbness, tingling, R ankle pain History of Current Condition Pt presents to clinic with R foot numbness and tingling along the R lateral plantar surface beginning 4 weeks. He also reports minimal numbness along the lateral dorsal surface of the R foot as well. He reports that his R foot started hurting at work and when he took off his shoe after work, he noticed that the lateral portion of the plantar surface of his foot was numb. He reports that the sensation worsened over the next several week but has stagnated recently. When he followed up with the doctor about the condition, they told him that his shoes ([employer]idas with built in sock) were compressing the R lateral plantar nerve. He now wears different shoes that are a size larger to prevent compression. He went to heavy repairer for the condition who recommended PT and custom orthotics. Pt believes that he also has a prior Achilles tendon injury to the same foot from a soccer accident a year ago, which he thinks also affects this condition. 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 He reports that his symptoms are most prevalent regardless of weight bearing, but it worsens with standing and walking (> 3 hrs) . Prior Treatments and Tests Met with heavy repairer, will be getting custom orthotics in future Treatment Goals Patient/Caregiver Goals To be able to tolerate standing at work Prior Functional Status Baseline Function- ADL's Independent Baseline Function- Mobility Independent Baseline Function- Work/School 10 hour shifts Baseline Function- Recreation/Hobbies Play soccer, swim Current Functional Impairments (Reported) Functional Limitations- Mobility/Gait Unable to walk >3 hrs before needing to sit down Functional Limitations- Work/School Unable to stand for > 3 hrs before needing to sit down Functional Limitations- Recreation/ Unable to hike, play soccer Hobbies PT-OP-C Subjective Start: 11/12/23 07:31 Freq: Status: Active Protocol: Document 12/23/23 13:47 NM (Rec: 12/23/23 14:30 NM [id number]) OP-PT Subjective Patient Comments Patient Comments He reports less numbness and tingling. Reports 0/10 pain in R foot; he drove from [place] so it's a little aggravated. He still feels like there is a lump in the bottom of the foot. He has been sitting more at work, which is helpful. He has an EMG 01/06/24. He has been more cognizant of his standing posture at work which helps and reports that the mats cause him to have more pain. PT-OP-D Balance Start: 11/12/23 07:31 Freq: Status: Active Protocol: Document 11/12/23 12:40 NM (Rec: 11/12/23 13:00 NM [id number]) Balance Tests Single Limb Standing Single Limb- Right 45 sec Single Limb- Left 30 sec; instability PT-OP-E Functional Tests Start: 11/12/23 07:31 Freq: Status: Active Protocol: Document 11/12/23 12:40 NM (Rec: 11/12/23 13:00 NM [id number]) Functional Tests Squat Test Score 10 Comments heel rise off ground Single Leg Squat Test Score 1 Comment R knee and ankle instability, genu valgus and pronation at foot Other Dorsiflexion Test Name of Test pt foot about 4 from wall in 1/2 kneel, heel on ground, measure distance Score 0 Comment R knee can touch wall PT-OP-F Manual Assessment Start: 11/12/23 07:31 Freq: Status: Active Protocol: Document 11/12/23 12:40 NM (Rec: 11/12/23 13:00 NM [id number]) Manual Assessments Soft Tissue Assessment Soft Tissue Mobility Assessment R Achilles is thickened compared to L Achilles. Pt reports tenderness at origin of plantar fascia on plantar surface of foot Joint Mobility Assessment Joint Mobility Assessment No instability at talocrural or subtalar joints. Nml mobility of rays, tarsals PT-OP-G Mobility & Gait Start: 11/12/23 07:31 Freq: Status: Active Protocol: Document 11/12/23 12:40 NM (Rec: 11/12/23 16:16 NM [id number]) OP Gait Assessment Gait Gait Assistance Required: Independent Distance (Feet) 100 Gait Deviations General Gait Pattern Decreased Feet Clearance Factors Limiting Gait Function Factors Limiting Gait Function Decreased Sensation,Pain Comments Gait Comments Pt demos R hip ER and R foot pronation with slight knee valgus during gait, minimally decreased foot clearance. Gait is not antalgic, but he does demo decreased step length on his RLE compared to his LLE. PT-OP-H Neuro Start: 11/12/23 07:31 Freq: Status: Active Protocol: Document 11/12/23 12:40 NM (Rec: 11/12/23 13:00 NM [id number]) Sensation Evaluation Gross Sensation Gross Sensation Left LE Impaired Sensation Description Paresthesia,Numbness Dermatome Impairments L4,S1 Location Details Right Foot Light Touch Impaired Comments Summary Comments L4 and S1 dermatomes impaired to light touch sensation ( lateral plantar and dorsal foot, 5th toe) PT-OP-J Posture/Palpation/Skin Start: 11/12/23 07:31 Freq: Status: Active Protocol: Document 11/12/23 12:40 NM (Rec: 11/12/23 13:00 NM [id number]) Posture Evaluation Position Standing Evaluation View posterior and anterior Pelvis Posture Posterior Tilted Weight Distribution Balanced Hip Posture (L) Neutral,(R) Neutral Knee Posture (L) Neutral,(R) Genu Valgus Ankle/Foot Posture (L) Pronated,(R) Pronated,(L) Calcaneal Eversion,(R) Calcaneal Eversion Foot Arch (L) Low Arch,(R) Low Arch Palpation Assessment Location R ankle/foot Palpation Location Achilles, malleoli, navicular, metatarsals, calcaneus Palpation Findings Tenderness Palpation Details Tenderness at calcaneus near plantar fascia origin; tenderness at Achilles near insertion Skin Assessment Other Assessments Skin Assessment Comments R foot is same color and temperature as L foot PT-OP-K Range of Motion Start: 11/12/23 07:31 Freq: Status: Active Protocol: Document 12/23/23 13:47 NM (Rec: 12/23/23 14:30 NM [id number]) Ankle and Foot Goniometric Range of Motion Ankle and Foot Right Ankle/Foot ROM WFL Yes Testing Position Sitting Dorsiflexion with Knee Flexed 8 Dorsiflexion with Knee Extended 5 Plantarflexion 50 Inversion 35 Eversion 20 Comments Min pain with eversion PT-OP-L Special Tests Start: 11/12/23 07:31 Freq: Status: Active Protocol: Document 11/12/23 12:40 NM (Rec: 11/12/23 13:00 NM [id number]) Special Tests Knee Special Tests Hamstring Length Comments R hamstring 150 deg L hamstring 170 deg Foot/Ankle Special Tests Windlass test Test Results negative (R) Comments arch rises Anterior drawer Test Results negative (R) Talar tilt Test Results negative (R) Villegas Test Results negative (R) Neural Special Tests- Lower Body Tarsal tunnel n tension Test Results negative Comments SLR + eversion + toe ext Plantar nerve Tinel Test Results positive (R) Comments reports tingling with tapping of abductor hallucis Superior peroneal n tension Test Results negative Comments SLR + PF + inversion Tarsal Tunnel Tinel Test Results positive (R) Comments reports tingling within 10 sec (Tibial n) PT-OP-M Strength Start: 11/12/23 07:31 Freq: Status: Active Protocol: Document 11/12/23 12:40 NM (Rec: 11/12/23 13:00 NM [id number]) Ankle/Foot Strength Ankle and Foot Manual Muscle Testing Left Dorsiflexion (L4) 4+ Good+ Inversion 4+ Good+ Eversion (S1) 4+ Good+ Comments Able to perform 10 single leg heel raises (4/5) Toes 5/5 digits 1-5 for flex and ext, unable to abduct toes Right Dorsiflexion (L4) 4- Good- Inversion 4 Good Eversion (S1) 3+ Fair+ Comments Able to perform 10 single leg heel raises (4/5) but with poor eccentric control and mild instability Reports discomfort with heel raise, eversion Toes: 4/5 digits 1-5 for flex and ext, unable to abduct toes PT-OP-Q Treatments Start: 11/12/23 07:31 Freq: Status: Active Protocol: Document 12/23/23 13:47 NM (Rec: 12/23/23 14:30 NM [id number]) Therapeutic Exercises Standing Exercises lunge Standing Exercise Name fwd lunge Side bilateral Resistance AROM Equipment Used tb tensioned under foot for greater foot intrinsic activation Reps/Minutes 2x10 Comments demos decreased stability; 2/ 10 pain in med R ankle back leg single leg heel raise Side right Resistance AROM Equipment Used wall for UE support Reps/Minutes 1x10 Comments reports min pain in R achilles , no foot pain; full ROM DF mobilization Side right Equipment Used 16 step Reps/Minutes 10x10 Comments reports good stretch in calf, good dorsiflexion mobilization Toe taps Standing Exercise Name small G/S isometric heel raise , tapping opp foot over cone then lower Side right Equipment Used stairs for UE use prn Reps/Minutes 1x10 ea Comments reports good activation in bottom of foot, no pain Hamstring stretch Side right Equipment Used foot elevated on 16 Reps/Minutes 2x30 Comments good feedback with stretch Heel raises Standing Exercise Name 1. gastroc, 2. soleus Side bilateral Equipment Used wall for support Reps/Minutes 2x10 Comments minimal pain in achilles tendon at end range Calf Stretch Standing Exercise Name 1. gastrocnemius, 2. soleus- for greater stretch Side right Equipment Used wall Reps/Minutes 2x30 ea Comments good feedback with soleus stretch under foot and calf Manual Therapy Treatment Soft Tissue Mobilization R foot/ankle Body Location plantar fascia, intrinsics, achilles tendon Mobilization Type Cross-Friction,Rolling, Strumming,Sustained Pressure Intensity/Depth Moderate Body Position Prone Comments For pain relief and decrease any soft tissue restrictions- minimal restrictions of plantar fascia and achilles. Pt reports ball of muscle under foot near 5th metatarsal ; able to palpate today, no tenderness. Pt reports good relief after. Self-Care/Home Management Treatment Education Patient Education Home Exercise Program Other Education HEP: lunge with band under foot, hamstring stretch PT-OP-T Assessment and Plan Start: 11/12/23 07:31 Freq: Status: Active Protocol: Document 12/23/23 13:47 NM (Rec: 12/23/23 14:30 NM [id number]) Physical Therapy Assessment Goals Five Impairment strength Impairment R ankle DF 4-/5, eversion 3+/5 , and inversion 4/5 Penitentiary Goal (LTG) Pt will improve global R ankle strength by at least 1 MMT grade without pain in order to demonstrate improved ankle stability during standing and while playing soccer. 12/14/23: 4+/5 MMT, no pain LTG Duration 6 weeks MET Four Impairment ADL, function Impairment FAAM score 62/84 (ADLs) and LEFS 70/80 Penitentiary Goal (LTG) Pt will improve his FAAM score by at least 8 points (1 MCID) and LEFS score by at least 5 points in order to demonstrate improved ADL tolerance and ability to participate in recreational activities. 12/23/23: LEFS 80/80, FAAM 76/ 80 LTG Duration 6 weeks MET Three Impairment strength Impairment R ankle 10 single limb heel raises with poor eccentric control Short Term Goal (STG) Pt will be able to perform at least 10 single leg heel raises with good eccentric control and improved ankle stability in order to demonstrate improved ankle plantaflexion strength for playing soccer. 12/23/23: 10 RLE heel raises, full ROM; reports minimal achilles pain STG Duration 3 weeks MET Penitentiary Goal (LTG) Pt will be able to perform at least 15 single leg heel raises with good eccentric control and improved ankle stability in order to demonstrate improved ankle plantaflexion strength for playing soccer. LTG Duration 6 weeks NOT MET, PROGRESSING Two Impairment function Penitentiary Goal (LTG) Pt will trial OTC shoe orthotics for at least 3 days to prevent R foot/ankle pronation and provide improved arch support for pain relief until he gets custom orthotics . 11/25/23: Pt using OTC orthotic shoe insert to prevent overpronation and provide arch support x2 weeks without pain LTG Duration 6 weeks MET One Impairment function Impairment Only able to stand 3 hrs before pain at work Short Term Goal (STG) Pt will report that he is able to stand for 3 hours with 3/ 10 or less reported pain before needing to take a seated rest break at work in order to demonstrate improved activity tolerance. 12/23/24: still 3 hrs, 2/10 STG Duration 3 weeks MET Bilingual Research Interviewer Goal (LTG) Pt will report that he is able to stand for 5 hours with 3/ 10 or less reported pain before needing to take a seated rest break at work in order to demonstrate improved activity tolerance. LTG Duration 6 weeks NOT MET Progress Towards Goals Progress Towards Goals Progressing Toward Goals,Goals Met Progress Comments Met 3 LTG, 2 STG Assessment Summary Assessment Pt tolerated treatment well. Progressed BLE strengthening with additional emphasis on promoting greater foot intrinsic activation to support pt arch. Initiated lunges for greater ankle mobilization with theraband under foot for greater foot intrinsic activation; cued to keep R heel/toes on ground with slight arch raise for challenge. Pt continues to have limited B hamstring length, which may factor into his recent achilles pain. Initiated single leg heel raises; cued for full ROM and sagittal plane motion only. Pt has minimal achilles pain with single heel raise and tends to move onto lateral portion of foot as compensation. Manual treatment using soft tissue mobilization for muscle relaxation and pain relief along lateral foot intrinsics. Pt has been seen in clinic 4x since IE for R foot numbness. He reports improvements in sensation since IE; however, he continues to have numbness at the lateral plantar distribution of his R foot. He demonstrates improvement in R ankle instrinsic and extrinsic muscle strength. Pt recently progressed to single leg heel raises. He has currently met 3 LTGs and 2 STGs. Pt reports no difficulty with participation in ADLs or recreational activities due to his pain; however, he is currently most limited by the length of time that he can stand at work due to foot pain . Pt would benefit from skilled PT for improved symptom management and activity tolerance in order to return to [facility]. Physical Therapy Plan Frequency and Duration Frequency of Treatment 2x/Week Duration of treatment (weeks) 6 Plan of Care Start Date 12/23/23 Plan of Care End Date 02/04/24 Therapeutic Interventions Therapeutic Interventions Aquatic Therapy,Balance Training,Coordination Training ,Gait Training,Home Exercise Program,Joint Mobilizations, Manual Therapy,Neuromuscular Re-education,Patient/Caregiver Education,Self-Care/Home Management,Sensory Integration ,Soft Tissue Mobilization, Taping,Therapeutic Activities, Therapeutic Exercises Modalities Biofeedback,Cold Pack/Ice Massage,Electric Stimulation, Hot Packs,Iontophoresis, Paraffin Bath,Ultrasound, Vasopneumatic Devices Next Visit Focus/Plan Next Note Type Progress Note Next Visit Plan Lunge, triple ext, toe abd, Continue manual therapy of R ankle, achilles, plantar fascia prn
--- NOTE | 2024-01-05 11:41 | PT-OP ANOTE ---
10:57, Phoned patient regarding not arriving for 10:30 appointment. Phoned again at 11:54 to remind of next appointment and the fee for no shows. Patient transferred to campus receptionist due to reporting he was not reminded of the appointment.
--- NOTE | 2024-01-19 12:46 | PT.OTN ---
Current Diagnoses Pain in right foot (01/19/24) Physical Therapy Treatment Note PT-OP-A Visit Information Start: 11/12/23 07:31 Freq: Status: Active Protocol: Document 01/19/24 10:30 AB (Rec: 01/19/24 12:46 AB [id number]) Out-Patient Physical Therapy Visit Information Visit Information Visit Note Access Code: [email or web address] Visit Start Time 11:18 Visit Stop Time 11:58 Evaluation Information Evaluation Date 11/12/23 Precautions Precautions Decreased sensation along lateral plantar surface of R foot, dorsal lateral surface of foot. PT-OP-B Current Condition Start: 11/12/23 07:31 Freq: Status: Active Protocol: Document 11/12/23 12:40 NM (Rec: 11/12/23 13:00 NM [id number]) Current Condition History of Current Condition Onset Date 4 weeks ago (mid September) Current Complaints R foot numbness, tingling, R ankle pain History of Current Condition Pt presents to clinic with R foot numbness and tingling along the R lateral plantar surface beginning 4 weeks. He also reports minimal numbness along the lateral dorsal surface of the R foot as well. He reports that his R foot started hurting at work and when he took off his shoe after work, he noticed that the lateral portion of the plantar surface of his foot was numb. He reports that the sensation worsened over the next several week but has stagnated recently. When he followed up with the doctor about the condition, they told him that his shoes ([employer]idas with built in sock) were compressing the R lateral plantar nerve. He now wears different shoes that are a size larger to prevent compression. He went to presentation manager for the condition who recommended PT and custom orthotics. Pt believes that he also has a prior Achilles tendon injury to the same foot from a soccer accident a year ago, which he thinks also affects this condition. 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 He reports that his symptoms are most prevalent regardless of weight bearing, but it worsens with standing and walking (> 3 hrs) . Prior Treatments and Tests Met with presentation manager, will be getting custom orthotics in future Treatment Goals Patient/Caregiver Goals To be able to tolerate standing at work Prior Functional Status Baseline Function- ADL's Independent Baseline Function- Mobility Independent Baseline Function- Work/School 10 hour shifts Baseline Function- Recreation/Hobbies Play soccer, swim Current Functional Impairments (Reported) Functional Limitations- Mobility/Gait Unable to walk >3 hrs before needing to sit down Functional Limitations- Work/School Unable to stand for > 3 hrs before needing to sit down Functional Limitations- Recreation/ Unable to hike, play soccer Hobbies PT-OP-C Subjective Start: 11/12/23 07:31 Freq: Status: Active Protocol: Document 01/19/24 10:30 AB (Rec: 01/19/24 12:46 AB [id number]) OP-PT Subjective Patient Comments Patient Comments Patient reports the foot feels better, got his insoles, reports EMG was normal. great toe 10 and 1/8th cm from wall with knee to wall prior to heel off floor PROM body over ankle right ankle DF. SLS squat with dynamic valgus right LE start of session. Pt also comments his mother reminded him that he has had a leg length discrepancy since he was a child. PT-OP-D Balance Start: 11/12/23 07:31 Freq: Status: Active Protocol: Document 11/12/23 12:40 NM (Rec: 11/12/23 13:00 NM [id number]) Balance Tests Single Limb Standing Single Limb- Right 45 sec Single Limb- Left 30 sec; instability PT-OP-E Functional Tests Start: 11/12/23 07:31 Freq: Status: Active Protocol: Document 11/12/23 12:40 NM (Rec: 11/12/23 13:00 NM [id number]) Functional Tests Squat Test Score 10 Comments heel rise off ground Single Leg Squat Test Score 1 Comment R knee and ankle instability, genu valgus and pronation at foot Other Dorsiflexion Test Name of Test pt foot about 4 from wall in 1/2 kneel, heel on ground, measure distance Score 0 Comment R knee can touch wall PT-OP-F Manual Assessment Start: 11/12/23 07:31 Freq: Status: Active Protocol: Document 11/12/23 12:40 NM (Rec: 11/12/23 13:00 NM [id number]) Manual Assessments Soft Tissue Assessment Soft Tissue Mobility Assessment R Achilles is thickened compared to L Achilles. Pt reports tenderness at origin of plantar fascia on plantar surface of foot Joint Mobility Assessment Joint Mobility Assessment No instability at talocrural or subtalar joints. Nml mobility of rays, tarsals PT-OP-G Mobility & Gait Start: 11/12/23 07:31 Freq: Status: Active Protocol: Document 11/12/23 12:40 NM (Rec: 11/12/23 16:16 NM [id number]) OP Gait Assessment Gait Gait Assistance Required: Independent Distance (Feet) 100 Gait Deviations General Gait Pattern Decreased Feet Clearance Factors Limiting Gait Function Factors Limiting Gait Function Decreased Sensation,Pain Comments Gait Comments Pt demos R hip ER and R foot pronation with slight knee valgus during gait, minimally decreased foot clearance. Gait is not antalgic, but he does demo decreased step length on his RLE compared to his LLE. PT-OP-H Neuro Start: 11/12/23 07:31 Freq: Status: Active Protocol: Document 11/12/23 12:40 NM (Rec: 11/12/23 13:00 NM [id number]) Sensation Evaluation Gross Sensation Gross Sensation Left LE Impaired Sensation Description Paresthesia,Numbness Dermatome Impairments L4,S1 Location Details Right Foot Light Touch Impaired Comments Summary Comments L4 and S1 dermatomes impaired to light touch sensation ( lateral plantar and dorsal foot, 5th toe) PT-OP-J Posture/Palpation/Skin Start: 11/12/23 07:31 Freq: Status: Active Protocol: Document 11/12/23 12:40 NM (Rec: 11/12/23 13:00 NM [id number]) Posture Evaluation Position Standing Evaluation View posterior and anterior Pelvis Posture Posterior Tilted Weight Distribution Balanced Hip Posture (L) Neutral,(R) Neutral Knee Posture (L) Neutral,(R) Genu Valgus Ankle/Foot Posture (L) Pronated,(R) Pronated,(L) Calcaneal Eversion,(R) Calcaneal Eversion Foot Arch (L) Low Arch,(R) Low Arch Palpation Assessment Location R ankle/foot Palpation Location Achilles, malleoli, navicular, metatarsals, calcaneus Palpation Findings Tenderness Palpation Details Tenderness at calcaneus near plantar fascia origin; tenderness at Achilles near insertion Skin Assessment Other Assessments Skin Assessment Comments R foot is same color and temperature as L foot PT-OP-K Range of Motion Start: 11/12/23 07:31 Freq: Status: Active Protocol: Document 12/23/23 13:47 NM (Rec: 01/25/24 14:30 NM [id number]) Ankle and Foot Goniometric Range of Motion Ankle and Foot Right Ankle/Foot ROM WFL Yes Testing Position Sitting Dorsiflexion with Knee Flexed 8 Dorsiflexion with Knee Extended 5 Plantarflexion 50 Inversion 35 Eversion 20 Comments Min pain with eversion PT-OP-L Special Tests Start: 11/12/23 07:31 Freq: Status: Active Protocol: Document 11/12/23 12:40 NM (Rec: 11/12/23 13:00 NM [id number]) Special Tests Knee Special Tests Hamstring Length Comments R hamstring 150 deg L hamstring 170 deg Foot/Ankle Special Tests Windlass test Test Results negative (R) Comments arch rises Anterior drawer Test Results negative (R) Talar tilt Test Results negative (R) Villegas Test Results negative (R) Neural Special Tests- Lower Body Tarsal tunnel n tension Test Results negative Comments SLR + eversion + toe ext Plantar nerve Tinel Test Results positive (R) Comments reports tingling with tapping of abductor hallucis Superior peroneal n tension Test Results negative Comments SLR + PF + inversion Tarsal Tunnel Tinel Test Results positive (R) Comments reports tingling within 10 sec (Tibial n) PT-OP-M Strength Start: 11/12/23 07:31 Freq: Status: Active Protocol: Document 11/12/23 12:40 NM (Rec: 11/12/23 13:00 NM [id number]) Ankle/Foot Strength Ankle and Foot Manual Muscle Testing Left Dorsiflexion (L4) 4+ Good+ Inversion 4+ Good+ Eversion (S1) 4+ Good+ Comments Able to perform 10 single leg heel raises (4/5) Toes 5/5 digits 1-5 for flex and ext, unable to abduct toes Right Dorsiflexion (L4) 4- Good- Inversion 4 Good Eversion (S1) 3+ Fair+ Comments Able to perform 10 single leg heel raises (4/5) but with poor eccentric control and mild instability Reports discomfort with heel raise, eversion Toes: 4/5 digits 1-5 for flex and ext, unable to abduct toes PT-OP-Q Treatments Start: 11/12/23 07:31 Freq: Status: Active Protocol: Document 01/19/24 10:30 AB (Rec: 01/19/24 12:46 AB [id number]) Therapeutic Exercises Sitting Exercises great toe abduction Side bilateral Reps/Minutes 2X10 post training Comments verbal and tactile cues, 2nd set in standing Standing Exercises lunges Standing Exercise Name walking lunge Side bilateral Reps/Minutes 20 feet X 4 Comments verbal and visual cues for hip hinge 3 way hip Side bilateral Resistance level 3 light green band Reps/Minutes X10 Comments Verbal and visual cues Manual Therapy Treatment Soft Tissue Mobilization R foot/ankle Body Location plantar fascia, intrinsics, achilles tendon, distal ant tib peroneals Mobilization Type Cross-Friction,Rolling, Strumming Body Position Hooklying Comments Monitored for pain, performed prior to exercise Joint Mobilizations R foot Joint 1-5 rays Direction dorsal-ventral Grade III Body Position Supine Reps/Duration 1x10 ea Comments for ray mobilization to improve R foot mobility Neuro Re-Education Treatment Other Activities glute med activation Details seated hip abduction with band Reps/Duration one minute X 2 Comments level 4 blue band, for glute med activation prior to lunges Self-Care/Home Management Treatment Activities Self-Care/Home Management Activities glute med activation, great toe abduction and 3 way hip added to HEP PT-OP-T Assessment and Plan Start: 11/12/23 07:31 Freq: Status: Active Protocol: Document 01/19/24 10:30 AB (Rec: 01/19/24 12:46 AB [id number]) Physical Therapy Assessment Goals Five Impairment strength Impairment R ankle DF 4-/5, eversion 3+/5 , and inversion 4/5 Nursing Home Goal (LTG) Pt will improve global R ankle strength by at least 1 MMT grade without pain in order to demonstrate improved ankle stability during standing and while playing soccer. 12/14/23: 4+/5 MMT, no pain LTG Duration 6 weeks MET Four Impairment ADL, function Impairment FAAM score 62/84 (ADLs) and LEFS 70/80 Nursing Home Goal (LTG) Pt will improve his FAAM score by at least 8 points (1 MCID) and LEFS score by at least 5 points in order to demonstrate improved ADL tolerance and ability to participate in recreational activities. 12/23/23: LEFS 80/80, FAAM 76/ 80 LTG Duration 6 weeks MET Three Impairment strength Impairment R ankle 10 single limb heel raises with poor eccentric control Short Term Goal (STG) Pt will be able to perform at least 10 single leg heel raises with good eccentric control and improved ankle stability in order to demonstrate improved ankle plantaflexion strength for playing soccer. 12/23/23: 10 RLE heel raises, full ROM; reports minimal achilles pain STG Duration 3 weeks MET [employer] Team Member Goal (LTG) Pt will be able to perform at least 15 single leg heel raises with good eccentric control and improved ankle stability in order to demonstrate improved ankle plantaflexion strength for playing soccer. LTG Duration 6 weeks NOT MET, PROGRESSING Two Impairment function Nursing Home Goal (LTG) Pt will trial OTC shoe orthotics for at least 3 days to prevent R foot/ankle pronation and provide improved arch support for pain relief until he gets custom orthotics . 11/25/23: Pt using OTC orthotic shoe insert to prevent overpronation and provide arch support x2 weeks without pain 01/19/2024 Pt reports less foot pain since he started wearing orthotics, but into this session without orthotics LTG Duration 6 weeks MET One Impairment function Impairment Only able to stand 3 hrs before pain at work Short Term Goal (STG) Pt will report that he is able to stand for 3 hours with 3/ 10 or less reported pain before needing to take a seated rest break at work in order to demonstrate improved activity tolerance. 12/23/24: still 3 hrs, 2/10 STG Duration 3 weeks MET [employer] Team Member Goal (LTG) Pt will report that he is able to stand for 5 hours with 3/ 10 or less reported pain before needing to take a seated rest break at work in order to demonstrate improved activity tolerance. LTG Duration 6 weeks NOT MET Assessment Summary Assessment Patient reports soreness in knees end of session, reports no increase in numbness and tingling. Improved single leg squat post glute med activation. Decreased ability to hold hip hinge during lunges likely due to hamstring stiffness. Physical Therapy Plan Frequency and Duration Frequency of Treatment 2x/Week Duration of treatment (weeks) 6 Plan of Care Start Date 12/23/23 Plan of Care End Date 02/04/24 Next Visit Focus/Plan Next Note Type Treatment Note Next Visit Plan Revisit lunges possibly mini lunge and increased focus on hip hinge. Continue manual therapy of R ankle, achilles, plantar fascia pr
--- NOTE | 2024-02-01 15:32 | PT-OP ANOTE ---
PT called on 01/31 at 15:30 and spoke to pt about canceled appt on 02/01. Pt's POC expiring on 02/03, so PT following up. Pt reports that he changed jobs and is moving, so he is wanting to discharge from PT. Reports that his foot is doing better and he had no issues since quit working. Reports that he now has no pain with standing. PT discussed discharge from PT services, pt agrees. Educated on following up with new PCP if symptoms change, return or worsen. Pt verbalizes understanding
--- NOTE | 2024-03-17 14:17 | PT.OPDS ---
Current Diagnoses Pain in right foot (01/19/24) Visit Care Team Role Provider Type Phil Perez MD Attending Provider Physician Family Provider Primary Care Provider Referring Provider Specialty: Family Practice Obstetrics Address: [place], [address] Email: [email or web address] Visit Number Visit Number 5 Discharge Summary PT-OP-B Current Condition Start: 11/12/23 07:31 Freq: Status: Active Protocol: Document 11/12/23 12:40 NM (Rec: 11/12/23 13:00 NM [id number]) Current Condition History of Current Condition Onset Date 4 weeks ago (mid September) Current Complaints R foot numbness, tingling, R ankle pain History of Current Condition Pt presents to clinic with R foot numbness and tingling along the R lateral plantar surface beginning 4 weeks. He also reports minimal numbness along the lateral dorsal surface of the R foot as well. He reports that his R foot started hurting at work and when he took off his shoe after work, he noticed that the lateral portion of the plantar surface of his foot was numb. He reports that the sensation worsened over the next several week but has stagnated recently. When he followed up with the doctor about the condition, they told him that his shoes ([employer]idas with built in sock) were compressing the R lateral plantar nerve. He now wears different shoes that are a size larger to prevent compression. He went to chief scientist for the condition who recommended PT and custom orthotics. Pt believes that he also has a prior Achilles tendon injury to the same foot from a soccer accident a year ago, which he thinks also affects this condition. 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 He reports that his symptoms are most prevalent regardless of weight bearing, but it worsens with standing and walking (> 3 hrs) . Prior Treatments and Tests Met with chief scientist, will be getting custom orthotics in future Treatment Goals Patient/Caregiver Goals To be able to tolerate standing at work Prior Functional Status Baseline Function- ADL's Independent Baseline Function- Mobility Independent Baseline Function- Work/School 10 hour shifts Baseline Function- Recreation/Hobbies Play soccer, swim Current Functional Impairments (Reported) Functional Limitations- Mobility/Gait Unable to walk >3 hrs before needing to sit down Functional Limitations- Work/School Unable to stand for > 3 hrs before needing to sit down Functional Limitations- Recreation/ Unable to hike, play soccer Hobbies PT-OP-C Subjective Start: 11/12/23 07:31 Freq: Status: Active Protocol: Document 01/19/24 10:30 AB (Rec: 01/19/24 12:46 AB [id number]) OP-PT Subjective Patient Comments Patient Comments Patient reports the foot feels better, got his insoles, reports EMG was normal. great toe 10 and 1/8th cm from wall with knee to wall prior to heel off floor PROM body over ankle right ankle DF. SLS squat with dynamic valgus right LE start of session. Pt also comments his mother reminded him that he has had a leg length discrepancy since he was a child. PT-OP-D Balance Start: 11/12/23 07:31 Freq: Status: Active Protocol: Document 11/12/23 12:40 NM (Rec: 11/12/23 13:00 NM [id number]) Balance Tests Single Limb Standing Single Limb- Right 45 sec Single Limb- Left 30 sec; instability PT-OP-E Functional Tests Start: 11/12/23 07:31 Freq: Status: Active Protocol: Document 11/12/23 12:40 NM (Rec: 11/12/23 13:00 NM [id number]) Functional Tests Squat Test Score 10 Comments heel rise off ground Single Leg Squat Test Score 1 Comment R knee and ankle instability, genu valgus and pronation at foot Other Dorsiflexion Test Name of Test pt foot about 4 from wall in 1/2 kneel, heel on ground, measure distance Score 0 Comment R knee can touch wall PT-OP-F Manual Assessment Start: 11/12/23 07:31 Freq: Status: Active Protocol: Document 11/12/23 12:40 NM (Rec: 11/12/23 13:00 NM [id number]) Manual Assessments Soft Tissue Assessment Soft Tissue Mobility Assessment R Achilles is thickened compared to L Achilles. Pt reports tenderness at origin of plantar fascia on plantar surface of foot Joint Mobility Assessment Joint Mobility Assessment No instability at talocrural or subtalar joints. Nml mobility of rays, tarsals PT-OP-G Mobility & Gait Start: 11/12/23 07:31 Freq: Status: Active Protocol: Document 11/12/23 12:40 NM (Rec: 11/12/23 16:16 NM [id number]) OP Gait Assessment Gait Gait Assistance Required: Independent Distance (Feet) 100 Gait Deviations General Gait Pattern Decreased Feet Clearance Factors Limiting Gait Function Factors Limiting Gait Function Decreased Sensation,Pain Comments Gait Comments Pt demos R hip ER and R foot pronation with slight knee valgus during gait, minimally decreased foot clearance. Gait is not antalgic, but he does demo decreased step length on his RLE compared to his LLE. PT-OP-H Neuro Start: 11/12/23 07:31 Freq: Status: Active Protocol: Document 11/12/23 12:40 NM (Rec: 11/12/23 13:00 NM [id number]) Sensation Evaluation Gross Sensation Gross Sensation Left LE Impaired Sensation Description Paresthesia,Numbness Dermatome Impairments L4,S1 Location Details Right Foot Light Touch Impaired Comments Summary Comments L4 and S1 dermatomes impaired to light touch sensation ( lateral plantar and dorsal foot, 5th toe) PT-OP-J Posture/Palpation/Skin Start: 11/12/23 07:31 Freq: Status: Active Protocol: Document 11/12/23 12:40 NM (Rec: 11/12/23 13:00 NM [id number]) Posture Evaluation Position Standing Evaluation View posterior and anterior Pelvis Posture Posterior Tilted Weight Distribution Balanced Hip Posture (L) Neutral,(R) Neutral Knee Posture (L) Neutral,(R) Genu Valgus Ankle/Foot Posture (L) Pronated,(R) Pronated,(L) Calcaneal Eversion,(R) Calcaneal Eversion Foot Arch (L) Low Arch,(R) Low Arch Palpation Assessment Location R ankle/foot Palpation Location Achilles, malleoli, navicular, metatarsals, calcaneus Palpation Findings Tenderness Palpation Details Tenderness at calcaneus near plantar fascia origin; tenderness at Achilles near insertion Skin Assessment Other Assessments Skin Assessment Comments R foot is same color and temperature as L foot PT-OP-K Range of Motion Start: 11/12/23 07:31 Freq: Status: Active Protocol: Document 12/23/23 13:47 NM (Rec: 12/23/23 14:30 NM [id number]) Ankle and Foot Goniometric Range of Motion Ankle and Foot Right Ankle/Foot ROM WFL Yes Testing Position Sitting Dorsiflexion with Knee Flexed 8 Dorsiflexion with Knee Extended 5 Plantarflexion 50 Inversion 35 Eversion 20 Comments Min pain with eversion PT-OP-L Special Tests Start: 11/12/23 07:31 Freq: Status: Active Protocol: Document 11/12/23 12:40 NM (Rec: 11/12/23 13:00 NM [id number]) Special Tests Knee Special Tests Hamstring Length Comments R hamstring 150 deg L hamstring 170 deg Foot/Ankle Special Tests Windlass test Test Results negative (R) Comments arch rises Anterior drawer Test Results negative (R) Talar tilt Test Results negative (R) Villegas Test Results negative (R) Neural Special Tests- Lower Body Tarsal tunnel n tension Test Results negative Comments SLR + eversion + toe ext Plantar nerve Tinel Test Results positive (R) Comments reports tingling with tapping of abductor hallucis Superior peroneal n tension Test Results negative Comments SLR + PF + inversion Tarsal Tunnel Tinel Test Results positive (R) Comments reports tingling within 10 sec (Tibial n) PT-OP-M Strength Start: 11/12/23 07:31 Freq: Status: Active Protocol: Document 11/12/23 12:40 NM (Rec: 11/12/23 13:00 NM [id number]) Ankle/Foot Strength Ankle and Foot Manual Muscle Testing Left Dorsiflexion (L4) 4+ Good+ Inversion 4+ Good+ Eversion (S1) 4+ Good+ Comments Able to perform 10 single leg heel raises (4/5) Toes 5/5 digits 1-5 for flex and ext, unable to abduct toes Right Dorsiflexion (L4) 4- Good- Inversion 4 Good Eversion (S1) 3+ Fair+ Comments Able to perform 10 single leg heel raises (4/5) but with poor eccentric control and mild instability Reports discomfort with heel raise, eversion Toes: 4/5 digits 1-5 for flex and ext, unable to abduct toes PT-OP-T Assessment and Plan Start: 11/12/23 07:31 Freq: Status: Active Protocol: Document 03/02/24 15:54 NM (Rec: 03/02/24 16:03 NM [id number]) Physical Therapy Assessment Goals Five Impairment strength Impairment R ankle DF 4-/5, eversion 3+/5 , and inversion 4/5 [employer] Goal (LTG) Pt will improve global R ankle strength by at least 1 MMT grade without pain in order to demonstrate improved ankle stability during standing and while playing soccer. 12/14/23: 4+/5 MMT, no pain LTG Duration 6 weeks MET Four Impairment ADL, function Impairment FAAM score 62/84 (ADLs) and LEFS 70/80 [employer] Goal (LTG) Pt will improve his FAAM score by at least 8 points (1 MCID) and LEFS score by at least 5 points in order to demonstrate improved ADL tolerance and ability to participate in recreational activities. 12/23/23: LEFS 80/80, FAAM 76/ 80 LTG Duration 6 weeks MET Three Impairment strength Impairment R ankle 10 single limb heel raises with poor eccentric control Short Term Goal (STG) Pt will be able to perform at least 10 single leg heel raises with good eccentric control and improved ankle stability in order to demonstrate improved ankle plantaflexion strength for playing soccer. 12/23/23: 10 RLE heel raises, full ROM; reports minimal achilles pain STG Duration 3 weeks MET [employer] Goal (LTG) Pt will be able to perform at least 15 single leg heel raises with good eccentric control and improved ankle stability in order to demonstrate improved ankle plantaflexion strength for playing soccer. LTG Duration 6 weeks NOT MET, PROGRESSING Two Impairment function [facility] Goal (LTG) Pt will trial OTC shoe orthotics for at least 3 days to prevent R foot/ankle pronation and provide improved arch support for pain relief until he gets custom orthotics . 11/25/23: Pt using OTC orthotic shoe insert to prevent overpronation and provide arch support x2 weeks without pain 01/19/2024 Pt reports less foot pain since he started wearing orthotics, but into this session without orthotics LTG Duration 6 weeks MET One Impairment function Impairment Only able to stand 3 hrs before pain at work Short Term Goal (STG) Pt will report that he is able to stand for 3 hours with 3/ 10 or less reported pain before needing to take a seated rest break at work in order to demonstrate improved activity tolerance. 12/23/24: still 3 hrs, 2/10 STG Duration 3 weeks MET [employer] Goal (LTG) Pt will report that he is able to stand for 5 hours with 3/ 10 or less reported pain before needing to take a seated rest break at work in order to demonstrate improved activity tolerance. LTG Duration 6 weeks NOT MET Assessment Summary Assessment Pt was evaluated on 11/12 for R foot numbness related to lateral plantar nerve compression. He attended x6 sessions after IE. He was progressing well toward goals and met all except standing/ single leg heel raises goals. Pt had poor compliance with performing HEP and with attendance, frequently cancelling sessions. On 02/01/24 , pt canceled final appt on 02/01 before plan of care on 02/03. PT called and spoke to pt on 01/31 to follow up with pt. Pt informed PT that his R foot was doing better and he had no issues since he quit working. Pt reported to PT that he has no R foot pain in standing. He changed jobs and is moving, thus he wanted to discharge from PT. PT educated pt to follow up with PCP if symptoms return, change, or worsen; pt verbalizes agreement. Pt will be discharged from PT per pt's request. Physical Therapy Plan Discharge Physical Therapy Discharge Reasons No Longer Attending PT Discharge Comments Pt canceled 7 appt, including last scheduled on 02/01 prior to plan of care expiration on 02/04/24. He reports symptoms have improved, is moving and no longer attending PT. Pt discharged from PT services Next Visit Focus/Plan Next Visit Plan Discharge from PT services
== END 2024-03-30 11:58 ==
LOC: PHYS 11:15
PROVIDERS: Family Provider Family Medicine; PCP Family Medicine; Referring Provider Family Medicine; Visit Provider Family Medicine
DX: M79.671 Pain in right foot (principal)
CPT/HCPCS: 97110; 97140; 97162